=== PATIENT | male | born 1970 | race Caucasian/White ===

== ENCOUNTER 2017-05-24 10:52 | Inpatient (IN) | payer MEDICARE, MEDICAID ==
[~2017-05-24] VITALS: Ht 185.4 cm; Wt 95.7 kg
[~2017-05-24 10:52] MED LIST: BUSP10TA11 PO; FOLI1TAB16 PO; GABA-530 PO; OMEP10CA4 PO
[2017-05-24 11:50] LABS: CLARITY,URINE CLOUDY (Clear); COLOR,URINE YELLOW (Yellow); GLUCOSE, URINE NEGATIVE (Neg); KETONES,URINE TRACE mg/dl (Neg); LEUKOCYTE ESTERASE ,URINE NEGATIVE (Neg); NITRITES, URINE NEGATIVE (Neg); OCCULT BLOOD,URINE NEGATIVE (Neg); PROTEIN,URINE 30 mg/dl (Neg); UROBILINOGEN,URINE >=8.0 E.U/dL (0.2-1.0)
[2017-05-24 11:51] LABS: UA COLLECTION TYPE CLN CATCH MIDSTREAM
[2017-05-24 11:58] LABS: MUCUS STRANDS MODERATE /LPF (Neg); SQUAMOUS EPITHELIAL CELL,UR FEW /LPF (FEW)
[2017-05-24 11:59] LABS: BACTERIA,URINE FEW /HPF (Neg); TRANSITIONAL EPI CELLS,URINE FEW /HPF
[2017-05-24 12:00] LABS: RBC,URINE 0-2 /HPF (0-2); WBC,URINE 0-4 /HPF (0-4)
[2017-05-24] MEDS ORDERED: normal saline 1000ML IV soln IVB ONE (12:30)
[2017-05-24] MEDS ORDERED: ondansetron/PF 4mg/2ml inj IV ONE (12:30)
[2017-05-24] MEDS ORDERED: ondansetron/PF 4mg/2ml inj IV STA (12:46)
[2017-05-24] MEDS ORDERED: MORPHINE 2MG in 2ml NS syringe IV STA ×2 (12:46→14:48)
[2017-05-24 13:05] LABS: BASOPHILS % (AUTO) 0.6 % (0-1); EOSINOPHILS % (AUTO) 0.5 % (0-6); HEMATOCRIT 46.8 % (42.0-52.0); HEMOGLOBIN 16.2 g/dl (14.0-17.9); LYMPHOCYTES % (AUTO) 18.1 % (21-51); MEAN CORPUSCULAR HEMOGLOBIN 31.3 PG (27.0-31.0); MEAN CORPUSCULAR HGB CONC 34.5 % (33.0-36.5); MEAN CORPUSCULAR VOLUME 90.7 FL (78-98); MEAN PLATELET VOLUME 8.2 FL (7.4-10.4); MONOCYTES # (AUTO) 0.4 X10'3 (0-0.9); MONOCYTES % (AUTO) 6.6 % (2-12); NEUTROPHILS # (AUTO) 4.2 X10'3 (1.8-7.7); NEUTROPHILS % (AUTO) 74.2 % (42-75); PLATELET COUNT 234 X10'3 (140-440); RED BLOOD COUNT 5.17 X10'6 (4.70-6.10); RED CELL DISTRIBUTION WIDTH 17.6 % (11.5-14.5); WHITE BLOOD COUNT 5.7 X10'3 (4.5-11.0)
[2017-05-24 13:23] LABS: ALANINE AMINOTRANSFERASE 195 U/L (12-78); ALBUMIN 3.6 G/DL (3.4-5.0); ALBUMIN/GLOBULIN RATIO 0.7 (1.1-1.5); ALKALINE PHOSPHATASE 222 IU/L (46-116); ANION GAP 16 (8-16); ASPARTATE AMINO TRANSFERASE 415 U/L (10-37); BILIRUBIN,TOTAL 2.8 MG/DL (0.1-1.0); BLOOD UREA NITROGEN 6 MG/DL (7-18); BUN/CREATININE RATIO 6.9 (5.4-32.0); CALCIUM 9.1 MG/DL (8.5-10.1); CHLORIDE 97 MMOL/L (99-107); CREATININE 0.87 MG/DL (0.60-1.10); GLUCOSE 122 MG/DL (70-104); LIPASE 472 U/L (73-393); POTASSIUM 3.7 MMOL/L (3.5-5.1); SODIUM 138 MMOL/L (135-145); TOTAL PROTEIN 8.5 G/DL (6.4-8.2); TROPONIN I < 0.04 NG/ML (0.0-0.05); eGFR > 90 ML/MIN
[2017-05-24] MEDS ORDERED: potassium Cl 20 mEq SR tablet PO PRN (14:50)
[2017-05-24] MEDS ORDERED: magnesium 4gm in 100ml NS 100 ML IV PRN (14:50)
[2017-05-24] MEDS ORDERED: mag hydrox/Alum hydrox/simeth 30ml oral suspension PO PRN (14:50)
[2017-05-24] MEDS ORDERED: haloperidol lactate 5mg/ml inj IM PRN (14:50)
[2017-05-24] MEDS ORDERED: haloperidol 5mg tablet PO PRN (14:50)
[2017-05-24] MEDS ORDERED: acetaminophen 325mg tablet PO PRN (14:50)
[2017-05-24] MEDS ORDERED: magnesium 2GM in 50ml NS 50 ML IV PRN (14:50)
[2017-05-24] MEDS ORDERED: magnesium hydroxide 30ml (MOM) UD suspension PO PRN (14:50)
[2017-05-24] MEDS ORDERED: thiamine 100mg/ml 2ml inj. IV ONE (14:50)
[2017-05-24] MEDS ORDERED: LORazepam 2 mg/ml vial IV ONE (14:50)
[2017-05-24] MEDS ORDERED: dextrose 50%-water 50ml dispensing syringe IV PRN (14:50)
[2017-05-24] MEDS ORDERED: ondansetron/PF 4mg/2ml inj IV PRN (14:50)
[2017-05-24] MEDS ORDERED: potassium Cl 40MEQ/NS 500ml 500 ML IV PRN ×2 (14:50)
[2017-05-24] MEDS: normal saline 1000ml 1,000 ML IV SCH (15:10)
[2017-05-24 15:40] LABS: INR 1.3 INR
[2017-05-24] MEDS: LORazepam 2 mg/ml vial IV PRN ×3 (18:03→20:50)
[2017-05-24] MEDS: gabapentin 100mg capsule PO SCH (20:46)
[2017-05-24 21:26] LABS: CLARITY,URINE CLEAR (Clear); COLOR,URINE AMBER (Yellow); GLUCOSE, URINE 100 mg/dl (Neg); KETONES,URINE 40 mg/dl (Neg); LEUKOCYTE ESTERASE ,URINE NEGATIVE (Neg); NITRITES, URINE NEGATIVE (Neg); OCCULT BLOOD,URINE NEGATIVE (Neg); PH,URINE 6.5 (4.8-8.0); PROTEIN,URINE 30 mg/dl (Neg)
[2017-05-24 21:31] LABS: UA COLLECTION TYPE URINAL
[2017-05-24 21:44] LABS: BACTERIA,URINE FEW /HPF (Neg); MUCUS STRANDS MANY /LPF (Neg); RBC,URINE NONE SEEN /HPF (0-2); SQUAMOUS EPITHELIAL CELL,UR FEW /LPF (FEW); WBC,URINE 0-4 /HPF (0-4)
[2017-05-24 21:45] LABS: AMORPHOUS PHOSPHATES 1+; HYALINE CASTS 0-3 /LPF (NEGATIVE)
[2017-05-25] MEDS: normal saline 1000ml 1,000 ML IV SCH ×2 (00:20→12:38)
[2017-05-25] MEDS: LORazepam 2 mg/ml vial IV PRN ×6 (00:27→23:00)
[2017-05-25 07:24] LABS: ANION GAP 14 (8-16); BLOOD UREA NITROGEN 9 MG/DL (7-18); BUN/CREATININE RATIO 13.2 (5.4-32.0); CALCIUM 8.3 MG/DL (8.5-10.1); CHLORIDE 101 MMOL/L (99-107); CREATININE 0.68 MG/DL (0.60-1.10); GLUCOSE 78 MG/DL (70-104); LIPASE 378 U/L (73-393); POTASSIUM 4.1 MMOL/L (3.5-5.1); SODIUM 138 MMOL/L (135-145); eGFR > 90 ML/MIN
[2017-05-25 07:58] LABS: BASOPHILS # (AUTO) 0.1 X10'3 (0-0.2); BASOPHILS % (AUTO) 1.2 % (0-1); EOSINOPHILS # (AUTO) 0.1 X10'3 (0-0.9); EOSINOPHILS % (AUTO) 1.5 % (0-6); HEMATOCRIT 38.2 % (42.0-52.0); HEMOGLOBIN 13.4 g/dl (14.0-17.9); LYMPHOCYTES # (AUTO) 1.1 X10'3 (1.1-4.8); LYMPHOCYTES % (AUTO) 18.3 % (21-51); MEAN CORPUSCULAR HGB CONC 35.2 % (33.0-36.5); MEAN PLATELET VOLUME 8.2 FL (7.4-10.4); MONOCYTES # (AUTO) 0.4 X10'3 (0-0.9); MONOCYTES % (AUTO) 7.1 % (2-12); NEUTROPHILS # (AUTO) 4.4 X10'3 (1.8-7.7); NEUTROPHILS % (AUTO) 71.9 % (42-75); PLATELET COUNT 154 X10'3 (140-440); RED CELL DISTRIBUTION WIDTH 17.7 % (11.5-14.5); WHITE BLOOD COUNT 6.2 X10'3 (4.5-11.0)
[2017-05-25] MEDS: enoxaparin 40mg/0.4ml syringe SUBCUT SCH (08:00)
[2017-05-25] MEDS: K and/or MAG REPLACEMENT MC SCH (08:00)
[2017-05-25] MEDS ORDERED: magnesium 2GM in 50ml NS 50 ML IV ONE (08:10)
[2017-05-25 08:42] LABS: ALANINE AMINOTRANSFERASE 149 U/L (12-78); ALBUMIN/GLOBULIN RATIO 0.8 (1.1-1.5); ALKALINE PHOSPHATASE 170 IU/L (46-116); ASPARTATE AMINO TRANSFERASE 325 U/L (10-37); BILIRUBIN,DIRECT 2.7 MG/DL (0-0.3); BILIRUBIN,TOTAL 4.1 MG/DL (0.1-1.0); TOTAL PROTEIN 6.8 G/DL (6.4-8.2)
[2017-05-25] MEDS: gabapentin 100mg capsule PO SCH ×2 (08:44→20:48)
[2017-05-25] MEDS: folic acid 1mg tablet PO SCH (08:45)
[2017-05-25] MEDS: thiamine 100mg tablet PO SCH (08:45)
[2017-05-25 16:05] VITALS: BP 143/104
[2017-05-25] MEDS: oxyCODONE IR 5mg (immed. release) tablet PO PRN ×2 (17:33→23:00)
[2017-05-25 20:00] VITALS: BP 111/89
[2017-05-25] MEDS: magnesium Cl slow-release 64mg tablet PO PRN (20:49)
[2017-05-26] VITALS: BP 122/81
[2017-05-26] MEDS: normal saline 1000ml 1,000 ML IV SCH ×3 (01:11→12:29)
[2017-05-26] MEDS: oxyCODONE IR 5mg (immed. release) tablet PO PRN ×2 (03:21→20:54)
[2017-05-26] MEDS: LORazepam 2 mg/ml vial IV PRN ×3 (03:21→12:56)
[2017-05-26 06:23] LABS: BASOPHILS % (AUTO) 0.5 % (0-1); EOSINOPHILS # (AUTO) 0.2 X10'3 (0-0.9); EOSINOPHILS % (AUTO) 2.7 % (0-6); HEMATOCRIT 37.6 % (42.0-52.0); HEMOGLOBIN 13.3 g/dl (14.0-17.9); LYMPHOCYTES # (AUTO) 0.7 X10'3 (1.1-4.8); LYMPHOCYTES % (AUTO) 9.5 % (21-51); MEAN CORPUSCULAR HEMOGLOBIN 32.2 PG (27.0-31.0); MEAN CORPUSCULAR HGB CONC 35.4 % (33.0-36.5); MEAN PLATELET VOLUME 9.1 FL (7.4-10.4); MONOCYTES # (AUTO) 0.3 X10'3 (0-0.9); NEUTROPHILS # (AUTO) 6.1 X10'3 (1.8-7.7); NEUTROPHILS % (AUTO) 83.3 % (42-75); PLATELET COUNT 127 X10'3 (140-440); RED BLOOD COUNT 4.13 X10'6 (4.70-6.10); RED CELL DISTRIBUTION WIDTH 17.3 % (11.5-14.5); WHITE BLOOD COUNT 7.3 X10'3 (4.5-11.0)
[2017-05-26 06:36] LABS: ALBUMIN 2.8 G/DL (3.4-5.0); ANION GAP 10 (8-16); BLOOD UREA NITROGEN 5 MG/DL (7-18); BUN/CREATININE RATIO 6.8 (5.4-32.0); CALCIUM 8.2 MG/DL (8.5-10.1); CHLORIDE 99 MMOL/L (99-107); CREATININE 0.73 MG/DL (0.60-1.10); GLUCOSE 88 MG/DL (70-104); LIPASE 207 U/L (73-393); MAGNESIUM 1.3 MG/DL (1.5-2.4); POTASSIUM 3.3 MMOL/L (3.5-5.1); SODIUM 136 MMOL/L (135-145); TOTAL CARBON DIOXIDE 26.9 MMOL/L (24-32); eGFR > 90 ML/MIN
[2017-05-26 07:45] VITALS: BP 102/68
[2017-05-26] MEDS: K and/or MAG REPLACEMENT MC SCH (08:00)
[2017-05-26] MEDS: thiamine 100mg tablet PO SCH (08:29)
[2017-05-26] MEDS: folic acid 1mg tablet PO SCH (08:29)
[2017-05-26] MEDS: gabapentin 100mg capsule PO SCH ×2 (08:29→20:54)
[2017-05-26] MEDS: potassium Cl 20 mEq SR tablet PO PRN (08:30)
[2017-05-26] MEDS: magnesium Cl slow-release 64mg tablet PO PRN (08:31)
[2017-05-26] MEDS: enoxaparin 40mg/0.4ml syringe SUBCUT SCH (08:34)
[2017-05-26 11:00] VITALS: BP 103/69
[2017-05-26] MEDS ORDERED: LORazepam 2 mg/ml vial IV PRN (14:50)
[2017-05-26 18:00] VITALS: BP 121/84
[2017-05-26] MEDS: metoprolol tartrate 12.5mg (1/2 tablet) PO SCH (20:54)
[2017-05-27] VITALS: BP 122/81
[2017-05-27] MEDS: magnesium Cl slow-release 64mg tablet PO PRN (01:02)
[2017-05-27] MEDS: potassium Cl 20 mEq SR tablet PO PRN ×2 (01:02→05:09)
[2017-05-27] MEDS: normal saline 1000ml 1,000 ML IV SCH (03:31)
[2017-05-27] MEDS: LORazepam 1 MG tablet PO PRN ×2 (03:32→04:47)
[2017-05-27] MEDS: oxyCODONE IR 5mg (immed. release) tablet PO PRN (05:09)
[2017-05-27 05:29] LABS: BASOPHILS % (AUTO) 0.5 % (0-1); EOSINOPHILS # (AUTO) 0.2 X10'3 (0-0.9); EOSINOPHILS % (AUTO) 3.2 % (0-6); HEMATOCRIT 38.4 % (42.0-52.0); HEMOGLOBIN 13.6 g/dl (14.0-17.9); LYMPHOCYTES # (AUTO) 1.3 X10'3 (1.1-4.8); LYMPHOCYTES % (AUTO) 20.1 % (21-51); MEAN CORPUSCULAR HEMOGLOBIN 32.4 PG (27.0-31.0); MEAN CORPUSCULAR HGB CONC 35.3 % (33.0-36.5); MEAN CORPUSCULAR VOLUME 91.8 FL (78-98); MEAN PLATELET VOLUME 9.1 FL (7.4-10.4); MONOCYTES # (AUTO) 0.5 X10'3 (0-0.9); MONOCYTES % (AUTO) 8.1 % (2-12); NEUTROPHILS # (AUTO) 4.5 X10'3 (1.8-7.7); NEUTROPHILS % (AUTO) 68.1 % (42-75); PLATELET COUNT 124 X10'3 (140-440); RED BLOOD COUNT 4.19 X10'6 (4.70-6.10); RED CELL DISTRIBUTION WIDTH 17.3 % (11.5-14.5); WHITE BLOOD COUNT 6.6 X10'3 (4.5-11.0)
[2017-05-27 05:45] LABS: ALBUMIN 2.7 G/DL (3.4-5.0); ANION GAP 11 (8-16); BLOOD UREA NITROGEN 7 MG/DL (7-18); BUN/CREATININE RATIO 9.3 (5.4-32.0); CALCIUM 8.2 MG/DL (8.5-10.1); CHLORIDE 99 MMOL/L (99-107); CREATININE 0.75 MG/DL (0.60-1.10); GLUCOSE 103 MG/DL (70-104); LIPASE 238 U/L (73-393); MAGNESIUM 1.2 MG/DL (1.5-2.4); POTASSIUM 3.5 MMOL/L (3.5-5.1); SODIUM 133 MMOL/L (135-145); TOTAL CARBON DIOXIDE 23.2 MMOL/L (24-32); eGFR > 90 ML/MIN
[2017-05-27] MEDS: thiamine 100mg tablet PO SCH (08:03)
[2017-05-27] MEDS: gabapentin 100mg capsule PO SCH (08:03)
[2017-05-27] MEDS: metoprolol tartrate 12.5mg (1/2 tablet) PO SCH (08:03)
[2017-05-27] MEDS: folic acid 1mg tablet PO SCH (08:03)
[2017-05-27] MEDS: enoxaparin 40mg/0.4ml syringe SUBCUT SCH (08:04)
[2017-05-27] MEDS ORDERED: METO25TA6 PO (08:56)
[2017-05-27] MEDS ORDERED: LORA0.5T PO (08:56)
[2017-05-27] MEDS ORDERED: THI100T PO (08:56)
[2017-05-27] MEDS ORDERED: MAGN500C16 PO (12:01)
[2017-05-27] MEDS ORDERED: CALC500P30 PO (12:03)
[2017-05-28] MEDS ORDERED: LORazepam 1 MG tablet PO PRN (14:50)
[2017-05-28] MEDS ORDERED: LORazepam 2 mg/ml vial IV PRN (14:50)
== END 2017-05-27 12:30 | disposition home or self-care (01) | DRG 432 ==
LOC: ER 10:53 → ED HOLD 14:49 → SUR 3N 05-25 15:51
PROVIDERS: ADMIT Internal Medicine; ATTEND Internal Medicine
DX: K70.10 Alcoholic hepatitis without ascites (principal); K85.20 Alcohol induced acute pancreatitis without necrosis or infection; E83.42 Hypomagnesemia; K51.90 Ulcerative colitis, unspecified, without complications; E87.1 Hypo-osmolality and hyponatremia; K74.60 Unspecified cirrhosis of liver; G62.9 Polyneuropathy, unspecified; K86.0 Alcohol-induced chronic pancreatitis; F10.230 Alcohol dependence with withdrawal, uncomplicated; F32.9 Major depressive disorder, single episode, unspecified; F41.9 Anxiety disorder, unspecified; K76.0 Fatty (change of) liver, not elsewhere classified; Z90.49 Acquired absence of other specified parts of digestive tract; Z87.11 Personal history of peptic ulcer disease
CPT/HCPCS: 36415; 74176; 80048; 80053; 80076; 81001; 83690; 83735; 84484; 85025; 85610; 93005; 96361; 96374; 96375; 99285; J1650; J2060; J2274; J2405; J3411; J3475; J7030

== ENCOUNTER 2018-10-14 06:24 | Emergency (ER) | payer MEDICAID, MEDICARE ==
[~2018-10-14] VITALS: Ht 180.3 cm; Wt 104.0 kg
[~2018-10-14 06:24] MED LIST changes: +CALC500P30 PO; +MAGN500C16 PO; +METO25TA6 PO; -OMEP10CA4 PO; +OMEP10CA5 PO; +THI100T PO
[2018-10-14] MEDS ORDERED: normal saline 1000ml 1,000 ML IV ONE ×2 (06:45→08:10)
[2018-10-14] MEDS ORDERED: LORazepam 2 mg/ml vial IV ONE ×2 (06:45→08:10)
[2018-10-14] MEDS ORDERED: aspirin 81mg tab.chew PO ONE (06:45)
[2018-10-14] MEDS ORDERED: metoclopramide 5 mg/ml inj IV ONE (06:50)
[2018-10-14 07:43] LABS: BASOPHILS % (AUTO) 0.5 % (0-1); EOSINOPHILS # (AUTO) 0.1 X10'3 (0-0.9); EOSINOPHILS % (AUTO) 1.3 % (0-6); HEMATOCRIT 46.7 % (42.0-52.0); HEMOGLOBIN 15.8 g/dl (14.0-17.9); LYMPHOCYTES # (AUTO) 1.7 X10'3 (1.1-4.8); MEAN CORPUSCULAR HEMOGLOBIN 28.8 PG (27.0-31.0); MEAN CORPUSCULAR HGB CONC 33.8 g/dL (33.0-36.5); MEAN CORPUSCULAR VOLUME 85.1 FL (78-98); MONOCYTES # (AUTO) 0.5 X10'3 (0-0.9); MONOCYTES % (AUTO) 6.1 % (2-12); NEUTROPHILS # (AUTO) 5.3 X10'3 (1.8-7.7); NEUTROPHILS % (AUTO) 70.1 % (42-75); PLATELET COUNT 267 X10'3 (140-440); RED BLOOD COUNT 5.48 X10'6 (4.70-6.10); RED CELL DISTRIBUTION WIDTH 14.3 % (11.5-14.5); WHITE BLOOD COUNT 7.5 X10'3 (4.5-11.0)
[2018-10-14 07:58] LABS: CLARITY,URINE CLEAR (Clear); COLOR,URINE YELLOW (Yellow); GLUCOSE, URINE NEGATIVE (Neg); KETONES,URINE 15 mg/dl (Neg); LEUKOCYTE ESTERASE ,URINE TRACE (Neg); NITRITES, URINE NEGATIVE (Neg); OCCULT BLOOD,URINE NEGATIVE (Neg); PROTEIN,URINE 30 mg/dl (Neg)
[2018-10-14 07:59] LABS: UA COLLECTION TYPE URINAL
[2018-10-14 08:15] LABS: BACTERIA,URINE FEW /HPF (Neg); MUCUS STRANDS MANY /LPF (Neg); RBC,URINE NONE SEEN /HPF (0-2); SQUAMOUS EPITHELIAL CELL,UR NONE SEEN /LPF (FEW)
[2018-10-14 08:22] LABS: ALANINE AMINOTRANSFERASE 172 U/L (12-78); ALBUMIN 3.9 G/DL (3.4-5.0); ALBUMIN/GLOBULIN RATIO 0.8 (1.1-1.5); ALKALINE PHOSPHATASE 175 IU/L (46-116); ANION GAP 18 (8-16); ASPARTATE AMINO TRANSFERASE 178 U/L (10-37); BILIRUBIN,TOTAL 1.1 MG/DL (0.1-1.0); BLOOD UREA NITROGEN 5 MG/DL (7-18); BUN/CREATININE RATIO 5.6 (5.4-32.0); CHLORIDE 97 MMOL/L (99-107); GLUCOSE 149 MG/DL (70-104); POTASSIUM 3.1 MMOL/L (3.5-5.1); SODIUM 137 MMOL/L (135-145); TOTAL CARBON DIOXIDE 22.1 MMOL/L (24-32); TOTAL PROTEIN 9.1 G/DL (6.4-8.2); eGFR 90 ML/MIN
[2018-10-14 08:27] LABS: URINE AMPHETAMINE SCREEN NEGATIVE (Neg); URINE BARBITUATE SCREEN NEGATIVE (Neg); URINE BENZODIAZEPINES SCREEN NEGATIVE (Neg); URINE CANNABINOID SCREEN POSITIVE (Neg); URINE COCAINE SCREEN NEGATIVE (Neg); URINE METHADONE SCREEN NEGATIVE (Neg); URINE OPIATE SCREEN NEGATIVE (Neg); URINE PHENCYCLIDINE SCREEN NEGATIVE (Neg)
[2018-10-14] MEDS ORDERED: potassium Cl 20 mEq SR tablet PO STA (08:31)
[2018-10-14 08:34] LABS: ETHANOL 0.123 GM/DL (0.0-0.010); MAGNESIUM 1.1 MG/DL (1.5-2.4)
[2018-10-14] MEDS ORDERED: CefTRIAXone/D5W-Rocephin 1gm 50 ML IV ONE (08:35)
[2018-10-14 08:45] VITALS: BP 160/103
== END 2018-10-14 09:22 | disposition home or self-care (01) ==
LOC: ER 06:25
DX: F10.10 Alcohol abuse, uncomplicated (principal); F41.9 Anxiety disorder, unspecified; R07.9 Chest pain, unspecified; M79.602 Pain in left arm; R11.0 Nausea; R20.0 Anesthesia of skin; R00.0 Tachycardia, unspecified; E11.9 Type 2 diabetes mellitus without complications; F32.9 Major depressive disorder, single episode, unspecified; I50.9 Heart failure, unspecified; Z79.899 Other long term (current) drug therapy; Z91.14 Patient's other noncompliance with medication regimen; Z87.19 Personal history of other diseases of the digestive system; Z87.11 Personal history of peptic ulcer disease; Z90.49 Acquired absence of other specified parts of digestive tract; Z60.2 Problems related to living alone; Y90.9 Presence of alcohol in blood, level not specified
CPT/HCPCS: 36415; 71045; 80053; 80305; 80320; 81001; 83735; 83880; 84484; 85025; 85610; 87088; 93005; 96374; 96375; 96376; 99284; J0696; J2060; J2765; J7030

== ENCOUNTER 2018-11-27 09:04 | Emergency (ER) | payer MEDICARE ==
[~2018-11-27] VITALS: Ht 182.9 cm; Wt 104.5 kg
--- NOTE | 2018-11-27 09:26 | NUR ---
PT TEARFUL, STATES HE IS DOESNT FIGHT WITH ANYONE. JUST HAVING FAMILY ISSUES.
--- NOTE | 2018-11-27 09:27 | NUR ---
PT SWEATY, COLD THEN HOT.
[2018-11-27] MEDS ORDERED: LORazepam 2 mg/ml vial IM ONE (09:45)
[2018-11-27 10:02] LABS: BASOPHILS # (AUTO) 0.1 X10'3 (0-0.2); BASOPHILS % (AUTO) 0.8 % (0-1); EOSINOPHILS # (AUTO) 0.1 X10'3 (0-0.9); EOSINOPHILS % (AUTO) 0.8 % (0-6); HEMATOCRIT 46.4 % (42.0-52.0); HEMOGLOBIN 15.6 g/dl (14.0-17.9); LYMPHOCYTES # (AUTO) 2.6 X10'3 (1.1-4.8); LYMPHOCYTES % (AUTO) 17.6 % (21-51); MEAN CORPUSCULAR HEMOGLOBIN 27.9 PG (27.0-31.0); MEAN CORPUSCULAR HGB CONC 33.5 g/dL (33.0-36.5); MEAN CORPUSCULAR VOLUME 83.4 FL (78-98); MEAN PLATELET VOLUME 7.6 FL (7.4-10.4); MONOCYTES # (AUTO) 0.8 X10'3 (0-0.9); MONOCYTES % (AUTO) 5.6 % (2-12); NEUTROPHILS # (AUTO) 11.1 X10'3 (1.8-7.7); NEUTROPHILS % (AUTO) 75.2 % (42-75); PLATELET COUNT 361 X10'3 (140-440); RED BLOOD COUNT 5.57 X10'6 (4.70-6.10); RED CELL DISTRIBUTION WIDTH 15.1 % (11.5-14.5); WHITE BLOOD COUNT 14.8 X10'3 (4.5-11.0)
[2018-11-27 10:19] LABS: ALANINE AMINOTRANSFERASE 130 U/L (12-78); ALBUMIN 4.1 G/DL (3.4-5.0); ALBUMIN/GLOBULIN RATIO 0.8 (1.1-1.5); ALKALINE PHOSPHATASE 164 IU/L (46-116); ANION GAP 17 (8-16); ASPARTATE AMINO TRANSFERASE 115 U/L (10-37); BILIRUBIN,TOTAL 0.8 MG/DL (0.1-1.0); BLOOD UREA NITROGEN 11 MG/DL (7-18); BUN/CREATININE RATIO 13.1 (5.4-32.0); CALCIUM 8.7 MG/DL (8.5-10.1); CHLORIDE 103 MMOL/L (99-107); CREATININE 0.84 MG/DL (0.60-1.10); ETHANOL 0.222 GM/DL (0.0-0.010); GLUCOSE 149 MG/DL (70-104); LIPASE < 50 U/L (73-393); POTASSIUM 3.7 MMOL/L (3.5-5.1); SODIUM 142 MMOL/L (135-145); TOTAL CARBON DIOXIDE 22.2 MMOL/L (24-32); TOTAL PROTEIN 9.2 G/DL (6.4-8.2); eGFR > 90 ML/MIN
[2018-11-27] MEDS ORDERED: mag hydrox/Alum hydrox/simeth 30ml oral suspension PO ONE (10:25)
[2018-11-27] MEDS ORDERED: LIDOcaine Viscous 15ml cup MM PRN (10:25)
[2018-11-27 10:26] LABS: PARTIAL THROMBOPLASTIN TIME 25 SECONDS (22-32)
--- NOTE | 2018-11-27 11:16 | NUR ---
SOCK EXAMINER STAFF AT BEDSIDE SPEAKING TO THE PT .NO DISTRESS NOTED.
[2018-11-27] MEDS ORDERED: normal saline 1000ML IV soln IV ONE (11:30)
--- NOTE | 2018-11-27 11:30 | NUR ---
notified paulina doran abt pt hr 155 at rest pt is anxious but his hr is in btw 140 -155,as per paulina doran he will order iv fluids .no other concern casting director at bedside ,spoke to them as pt needed iv as per casting director they will be done soon.
--- NOTE | 2018-11-27 12:26 | NUR ---
Note pio in EDM - 11/27/18 at 1229 by [email or web address] PT DOING LOT BETTER THAN BEFORE MORE RELAXED RESTING IN BED QUIETLY ,HR CAME DOWN FROM 155 TO 124 WITH IV FLUID .PT GETTING 2ND BAG OF N.S IV INFUSING PER MD ORDERS,NO DISTRESS NOTED WILL CONTTO MONITOR.
--- NOTE | 2018-11-27 12:29 | NUR ---
PT DOING LOT BETTER THAN BEFORE MORE RELAXED RESTING IN BED QUIETLY ,HR CAME DOWN FROM 155 TO 124 WITH IV FLUID .PT GETTING 2ND BAG OF N.S IV INFUSING PER MD ORDERS,NO DISTRESS NOTED WILL CONTTO MONITOR.
[2018-11-27] MEDS ORDERED: LORazepam 2 mg/ml vial IV ONE (12:50)
[2018-11-27] MEDS ORDERED: metoprolol tartrate 1mg/ml inj IV ONE (14:20)
[2018-11-27 14:43] LABS: CLARITY,URINE CLEAR (Clear); COLOR,URINE YELLOW (Yellow); GLUCOSE, URINE NEGATIVE (Neg); KETONES,URINE 40 mg/dl (Neg); LEUKOCYTE ESTERASE ,URINE NEGATIVE (Neg); NITRITES, URINE NEGATIVE (Neg); OCCULT BLOOD,URINE TRACE-INTACT (Neg); PH,URINE 5.5 (4.8-8.0); PROTEIN,URINE 100 mg/dl (Neg)
[2018-11-27 14:45] LABS: UA COLLECTION TYPE NON-SPECIFIED
[2018-11-27 14:47] VITALS: BP 136/102
[2018-11-27 14:50] LABS: URINE AMPHETAMINE SCREEN NEGATIVE (Neg); URINE BARBITUATE SCREEN NEGATIVE (Neg); URINE BENZODIAZEPINES SCREEN NEGATIVE (Neg); URINE CANNABINOID SCREEN POSITIVE (Neg); URINE COCAINE SCREEN NEGATIVE (Neg); URINE METHADONE SCREEN NEGATIVE (Neg); URINE OPIATE SCREEN NEGATIVE (Neg); URINE PHENCYCLIDINE SCREEN NEGATIVE (Neg)
[2018-11-27 14:52] LABS: MUCUS STRANDS MODERATE /LPF (Neg)
[2018-11-27 14:54] LABS: BACTERIA,URINE FEW /HPF (Neg); RBC,URINE 0-2 /HPF (0-2); SQUAMOUS EPITHELIAL CELL,UR FEW /LPF (FEW)
--- NOTE | 2018-11-27 15:06 | NUR ---
PT'S HEART RATE HAS COME DOWN TO 103 AND URINE IS CLEAR. PT IS CLEARED FOR DC BY PROVIDER. PT GIVEN 3 BUS PASSES IF HE CHOOSES TO USE THEM TO GET TO [place]. ALSO PT IS TRYING TO CALL A FRIEND FOR TRANSPORT.
== END 2018-11-27 15:10 | disposition home or self-care (01) ==
LOC: ER 09:05
DX: F10.20 Alcohol dependence, uncomplicated (principal); F41.9 Anxiety disorder, unspecified; F32.9 Major depressive disorder, single episode, unspecified; R00.0 Tachycardia, unspecified; I11.0 Hypertensive heart disease with heart failure; I50.9 Heart failure, unspecified; R11.2 Nausea with vomiting, unspecified; E11.9 Type 2 diabetes mellitus without complications; F12.90 Cannabis use, unspecified, uncomplicated; Z87.11 Personal history of peptic ulcer disease; Z90.49 Acquired absence of other specified parts of digestive tract
CPT/HCPCS: 36415; 71045; 80053; 80305; 80320; 81001; 83690; 84484; 85025; 85610; 85730; 87088; 93005; 96361; 96372; 96374; 96375; 99284; J2060; J7030; J3490

== ENCOUNTER 2020-10-14 19:35 | Emergency (ER) | payer MEDICARE, MEDICAID ==
[~2020-10-14] VITALS: Ht 182.9 cm; Wt 104.3 kg
[~2020-10-14 19:35] MED LIST changes: +LOP25T PO; -METO25TA6 PO
[2020-10-14 19:36] VITALS: BP 136/92
[2020-10-14] MEDS ORDERED: normal saline 1000ml 1,000 ML IV ONE (21:25)
[2020-10-14] MEDS ORDERED: LORazepam 1 MG tablet PO ONE (21:25)
[2020-10-14] MEDS ORDERED: iohexol 300mg/ml 100ml inj. ONE (21:28)
[2020-10-14 22:11] LABS: ALBUMIN 3.9 G/DL (3.4-5.0); ANION GAP 13 (8-16); BLOOD UREA NITROGEN 8 MG/DL (7-18); BUN/CREATININE RATIO 9.8 (5.4-32.0); CALCIUM 8.3 MG/DL (8.5-10.1); CHLORIDE 107 MMOL/L (99-107); CREATININE 0.82 MG/DL (0.60-1.10); GLUCOSE 149 MG/DL (70-104); LIPASE < 50 U/L (73-393); SODIUM 146 MMOL/L (135-145); TOTAL CARBON DIOXIDE 25.6 MMOL/L (24-32); eGFR > 90 ML/MIN
[2020-10-14] MEDS ORDERED: MESSAGE TO NURSING PO SCH (22:30)
[2020-10-14 22:38] LABS: EOSINOPHILS # (AUTO) 0.2 X10'3 (0-0.9); MEAN CORPUSCULAR HEMOGLOBIN 21.3 PG (27.0-31.0); MONOCYTES # (AUTO) 0.7 X10'3 (0-0.9)
[2020-10-14 22:39] LABS: BASOPHILS # (AUTO) 0.1 X10'3 (0-0.2); BASOPHILS % (AUTO) 2.4 % (0-1); EOSINOPHILS % (AUTO) 2.7 % (0-6); HEMATOCRIT 35.1 % (42.0-52.0); HEMOGLOBIN 11.2 g/dl (14.0-17.9); LYMPHOCYTES # (AUTO) 1.8 X10'3 (1.1-4.8); MEAN CORPUSCULAR HGB CONC 31.8 g/dL (33.0-36.5); MEAN CORPUSCULAR VOLUME 66.8 FL (78-98); MEAN PLATELET VOLUME 7.2 FL (7.4-10.4); MONOCYTES % (AUTO) 11.9 % (2-12); NEUTROPHILS # (AUTO) 3.1 X10'3 (1.8-7.7); PLATELET COUNT 558 X10'3 (140-440); RED BLOOD COUNT 5.26 X10'6 (4.70-6.10); RED CELL DISTRIBUTION WIDTH 24.1 % (11.5-14.5); WHITE BLOOD COUNT 5.9 X10'3 (4.5-11.0)
[2020-10-14 23:49] LABS: ANISOCYTOSIS 3+; PLATELET ESTIMATE INCREASED
[2020-10-14 23:50] LABS: ELLIPTOCYTES 1+; MICROCYTOSIS 2+
== END 2020-10-15 00:07 | disposition home or self-care (01) ==
LOC: ER 19:35
DX: R10.13 Epigastric pain (principal); R11.0 Nausea; I50.9 Heart failure, unspecified; F41.9 Anxiety disorder, unspecified; F32.9 Major depressive disorder, single episode, unspecified; F12.90 Cannabis use, unspecified, uncomplicated; Z87.11 Personal history of peptic ulcer disease; Z90.89 Acquired absence of other organs; Z72.89 Other problems related to lifestyle; Z60.2 Problems related to living alone; Z79.899 Other long term (current) drug therapy
CPT/HCPCS: 36415; 74177; 80048; 83690; 85008; 85025; 96360; 96361; 99285; J7030; Q9967

== ENCOUNTER 2020-10-21 03:15 | Emergency (ER) | payer MEDICARE, MEDICAID ==
[~2020-10-21] VITALS: Ht 182.9 cm; Wt 109.0 kg
[2020-10-21] MEDS ORDERED: normal saline 1000ml 1,000 ML IV ONE (03:45)
[2020-10-21 04:10] LABS: BASOPHILS # (AUTO) 0.2 X10'3 (0-0.2); BASOPHILS % (AUTO) 3.2 % (0-1); EOSINOPHILS # (AUTO) 0.1 X10'3 (0-0.9)
[2020-10-21 04:11] LABS: EOSINOPHILS % (AUTO) 2.2 % (0-6); HEMATOCRIT 36.2 % (42.0-52.0); HEMOGLOBIN 11.3 g/dl (14.0-17.9); LYMPHOCYTES # (AUTO) 1.8 X10'3 (1.1-4.8); LYMPHOCYTES % (AUTO) 30.8 % (21-51); MEAN CORPUSCULAR HGB CONC 31.3 g/dL (33.0-36.5); MEAN CORPUSCULAR VOLUME 67.1 FL (78-98); MEAN PLATELET VOLUME 8.2 FL (7.4-10.4); MONOCYTES # (AUTO) 0.3 X10'3 (0-0.9); MONOCYTES % (AUTO) 5.3 % (2-12); NEUTROPHILS # (AUTO) 3.4 X10'3 (1.8-7.7); NEUTROPHILS % (AUTO) 58.5 % (42-75); PLATELET COUNT 323 X10'3 (140-440); RED BLOOD COUNT 5.39 X10'6 (4.70-6.10); RED CELL DISTRIBUTION WIDTH 25.2 % (11.5-14.5); WHITE BLOOD COUNT 5.8 X10'3 (4.5-11.0)
[2020-10-21 04:19] LABS: ALBUMIN 3.9 G/DL (3.4-5.0); ANION GAP 18 (8-16); BLOOD UREA NITROGEN 7 MG/DL (7-18); BUN/CREATININE RATIO 7.1 (5.4-32.0); CALCIUM 8.2 MG/DL (8.5-10.1); CHLORIDE 102 MMOL/L (99-107); CREATININE 0.99 MG/DL (0.60-1.10); GLUCOSE 222 MG/DL (70-104); POTASSIUM 3.6 MMOL/L (3.5-5.1); SODIUM 142 MMOL/L (135-145); TOTAL CARBON DIOXIDE 22.1 MMOL/L (24-32); eGFR 80 ML/MIN
[2020-10-21 04:44] LABS: ANISOCYTOSIS 3+; MICROCYTOSIS 2+; PLATELET ESTIMATE NORMAL
--- NOTE | 2020-10-21 04:50 | NUR ---
Pt crawling out of bed repeatedly, directable but a fall risk, tech at bedside to assist.
--- NOTE | 2020-10-21 05:14 | NUR ---
unable to reconcile meds, pt does not know what he is supposed to be taking and is non-compliant with meds.
[2020-10-21 05:16] VITALS: BP 143/106
[2020-10-21] MEDS ORDERED: LORazepam 2 mg/ml vial IV ONE (05:20)
--- NOTE | 2020-10-21 05:52 | NUR ---
MD AT BEDSIDE, PT REPORTS ATIVAN HAS IMPROVED HIS SHAKING. RN DISCUSSED ETOH LEVEL, MD REPORTS NOT NEEDED AT THIS TIME.
== END 2020-10-21 06:11 | disposition home or self-care (01) ==
LOC: ER 03:16
DX: F10.239 Alcohol dependence with withdrawal, unspecified (principal); Z20.822 Contact with and (suspected) exposure to COVID-19; F41.9 Anxiety disorder, unspecified; E87.6 Hypokalemia; I11.0 Hypertensive heart disease with heart failure; I50.9 Heart failure, unspecified; E11.9 Type 2 diabetes mellitus without complications; F32.9 Major depressive disorder, single episode, unspecified; F12.90 Cannabis use, unspecified, uncomplicated; Z90.89 Acquired absence of other organs; Z87.11 Personal history of peptic ulcer disease; Z72.89 Other problems related to lifestyle; Z60.2 Problems related to living alone; Z79.899 Other long term (current) drug therapy
CPT/HCPCS: 36415; 71045; 80048; 85008; 85025; 87635; 96361; 96374; 99284; C9803; J2060; J7030

== ENCOUNTER 2020-12-17 18:11 | Inpatient (IN) | payer MEDICARE, MEDICAID ==
[~2020-12-17] VITALS: Ht 182.9 cm; Wt 90.9 kg
--- NOTE | 2020-12-17 20:12 | NUR ---
PT REPORTS HE CALLED THE POLICE BECAUSE HE DIDNT THINK HE COULD STOP DRINKING AND DIDNT WANT TO . WHEN ASKED IF HE IS SUICIDAL, PT STATES "I DONT KNOW." PT IS C/O "LIVER PAIN." PT DENIES ANY MH HX, BUT TAKES BUSPAR AND REPORTS HAVING "DEPRESSION". PT REPORTS HE IS DIABETIC AND TAKES METFORMIN TWICE A DAY BUT DOESNT KNOW HOW MUCH. PT IS CRYING. PT STATES HE HAS BEEN HERE ABOUT 8 YEARS AND PLANS TO MOVE BACK TO [place] TO TAKE CARE OF HIS MOTHER.
[2020-12-17] MEDS ORDERED: LORazepam 2 mg/ml vial IM ONE (20:25)
[2020-12-17 20:31] LABS: URINE AMPHETAMINE SCREEN NEGATIVE (Neg); URINE BARBITUATE SCREEN NEGATIVE (Neg); URINE BENZODIAZEPINES SCREEN NEGATIVE (Neg); URINE CANNABINOID SCREEN POSITIVE (Neg); URINE COCAINE SCREEN NEGATIVE (Neg); URINE METHADONE SCREEN NEGATIVE (Neg); URINE OPIATE SCREEN NEGATIVE (Neg); URINE PHENCYCLIDINE SCREEN NEGATIVE (Neg)
[2020-12-17 20:35] LABS: CLARITY,URINE SLIGHTLY CLOUDY (Clear); COLOR,URINE YELLOW (Yellow); NITRITES, URINE NEGATIVE (Neg); OCCULT BLOOD,URINE NEGATIVE (Neg); PROTEIN,URINE NEGATIVE (Neg); UA COLLECTION TYPE CLN CATCH MIDSTREAM
[2020-12-17] MEDS ORDERED: mag hydrox/Alum hydrox/simeth 30ml oral suspension PO ONE (20:35)
[2020-12-17] MEDS ORDERED: ondansetron 4mg rapidly disintigrating tab PO ONE (20:35)
[2020-12-17 20:36] LABS: LEUKOCYTE ESTERASE ,URINE NEGATIVE (Neg); UROBILINOGEN,URINE 0.2 E.U/dL (0.2-1.0)
[2020-12-17 20:38] LABS: GLUCOSE, URINE >=1000 mg/dl (Neg)
[2020-12-17 20:39] LABS: KETONES,URINE 15 mg/dl (Neg)
[2020-12-17 20:47] LABS: BACTERIA,URINE FEW /HPF (Neg); RBC,URINE 0-2 /HPF (0-2); SQUAMOUS EPITHELIAL CELL,UR FEW /LPF (FEW); WBC,URINE 0-4 /HPF (0-4)
[2020-12-17 20:48] LABS: CALCIUM PHOSPHATE CRYSTALS,UR FEW /HPF (NEGATIVE)
[2020-12-17 21:03] LABS: HEMATOCRIT 38.7 % (42.0-52.0); HEMOGLOBIN 12.1 g/dl (14.0-17.9); MEAN CORPUSCULAR HEMOGLOBIN 22.4 PG (27.0-31.0); MEAN CORPUSCULAR HGB CONC 31.3 g/dL (33.0-36.5); MEAN CORPUSCULAR VOLUME 71.7 FL (78-98); MEAN PLATELET VOLUME 8.3 FL (7.4-10.4); PLATELET COUNT 443 X10'3 (140-440); RED BLOOD COUNT 5.39 X10'6 (4.70-6.10); RED CELL DISTRIBUTION WIDTH 25.8 % (11.5-14.5); WHITE BLOOD COUNT 6.3 X10'3 (4.5-11.0)
--- NOTE | 2020-12-17 21:07 | NUR ---
Pt reports feeling better anxiety is currently 5/10. Pt was given Ativan 2mg IM prn, zofran and maalox. Pt is laying in bed resting quietly, encouraging fluids, pt has had 2 pitchers of water.
[2020-12-17 21:14] LABS: ALANINE AMINOTRANSFERASE 147 U/L (12-78); ALBUMIN 3.9 G/DL (3.4-5.0); ALBUMIN/GLOBULIN RATIO 0.8 (1.1-1.5); ALKALINE PHOSPHATASE 127 IU/L (46-116); ANION GAP 23 (8-16); ASPARTATE AMINO TRANSFERASE 83 U/L (10-37); BILIRUBIN,TOTAL 0.4 MG/DL (0.1-1.0); BLOOD UREA NITROGEN 5 MG/DL (7-18); BUN/CREATININE RATIO 4.5 (5.4-32.0); CALCIUM 9.2 MG/DL (8.5-10.1); CHLORIDE 96 MMOL/L (99-107); ETHANOL 0.272 GM/DL (0.0-0.010); GLUCOSE 443 MG/DL (70-104); LIPASE 51 U/L (73-393); SODIUM 138 MMOL/L (135-145); TOTAL CARBON DIOXIDE 19.2 MMOL/L (24-32); eGFR 71 ML/MIN
[2020-12-17] MEDS ORDERED: normal saline 1000ml 1,000 ML IV ONE ×4 (21:15→23:15)
[2020-12-17] MEDS ORDERED: LORazepam 2 mg/ml vial IM PRN (21:20)
[2020-12-17 21:27] LABS: ANISOCYTOSIS 3+; ELLIPTOCYTES 1+; LARGE PLATELETS FEW; MICROCYTOSIS 1+; PLATELET ESTIMATE INCREASED; TOTAL CELLS COUNTED 100
--- NOTE | 2020-12-17 21:43 | NUR ---
Pt continued to be anxious prn Ativan given. Pt went to CT is smiling upon return reports feeling better, laying in bed appears to be resting comfortably.
--- NOTE | 2020-12-17 22:22 | NUR ---
pts glucose 443 provider is aware
[2020-12-17] MEDS ORDERED: thiamine 100mg/ml 2ml inj. IV ONE (23:10)
[2020-12-17] MEDS ORDERED: folic acid 1mg/0.2ml inj IV ONE (23:10)
--- NOTE | 2020-12-17 23:10 | NUR ---
PT ROOMED IN BED 9.
[2020-12-17] MEDS ORDERED: insulin regular, human 10 units/0.1 ml syringe IV ONE (23:15)
--- NOTE | 2020-12-17 23:22 | NUR ---
5 UNSUCCESSFUL ATTEMPTS HAVE BEEN MADE BY 2 RNS TO START AN IV.
--- NOTE | 2020-12-17 23:31 | NUR ---
IV PLACED BY GRACE KIRK, ON LEFT LOWER EXTREMITY AFTER SEVERAL ATTEMPTS WERE FAILED IN BOTH ARMS
--- NOTE | 2020-12-18 00:30 | NUR ---
DISCUSSED MEDICATIONS WITH NOLAN JONES. NO NEW ORDERS FOR INSULIN DRIP OR FOR STARTING DKA PROTOCOLS. PT HAS HISTORY OF DM TYPE 2. HE IS NOT ON INSULIN AT HOME. WILL CONTINUE TO MONITOR BG AFTER 3L OF FLUIDS AND 5 UNITS OF HUMULIN R.
[2020-12-18] MEDS ORDERED: acetaminophen 325mg tablet PO PRN (00:35)
[2020-12-18] MEDS ORDERED: magnesium hydroxide 30ml (MOM) UD suspension PO PRN (00:35)
[2020-12-18] MEDS ORDERED: mag hydrox/Alum hydrox/simeth 30ml oral suspension PO PRN (00:35)
[2020-12-18] MEDS ORDERED: potassium Cl 40MEQ/1/2NS 520ml 520 ML IV PRN ×2 (00:35)
[2020-12-18] MEDS ORDERED: dextrose ORAL solution 15 GM/59 ML bottle PO PRN ×4 (00:40→19:45)
[2020-12-18] MEDS ORDERED: MESSAGE TO PHARMACY PO ONE ×2 (00:40→19:45)
[2020-12-18] MEDS ORDERED: glucagon, human recombinant 1mg kit SUBCUT PRN ×2 (00:40→19:45)
[2020-12-18] MEDS ORDERED: dextrose 50%-water 50ml dispensing syringe IV PRN ×4 (00:40→19:45)
[2020-12-18] MEDS ORDERED: pantoprazole 40 MG vial IV ONE (00:50)
[2020-12-18] MEDS: normal saline 1000ml 1,000 ML IV SCH ×3 (01:12→20:35)
[2020-12-18 02:00] LABS: HEMOGLOBIN A1C 10.4 % (4.5-6.2)
[2020-12-18] MEDS: LORazepam 2 mg/ml vial IV PRN ×6 (05:16→21:41)
--- NOTE | 2020-12-18 05:25 | NUR ---
PT STARTED TO BECOME AGITATED AND REQUESTED ATIVAN. MEDICATED PT PER PRN ORDERS.
--- NOTE | 2020-12-18 06:00 | NUR ---
PT RESTING COMFORTABLY. EQUAL RISE AND FALL OF CHEST
--- NOTE | 2020-12-18 06:30 | NUR ---
PATIENT 5150, NO SITTER AVAILABLE, DOLL WIGS HACKLER AWARE
[2020-12-18] MEDS: K and/or MAG REPLACEMENT MC SCH ×2 (08:00→18:22)
[2020-12-18] MEDS: multivitamins, therapeutics tablet PO SCH (09:40)
[2020-12-18] MEDS: heparin, porcine 5000 units/ml vial SQ SCH ×2 (09:41→20:32)
[2020-12-18] MEDS: docusate sod 100mg capsule PO SCH ×2 (09:42→20:00)
[2020-12-18] MEDS ORDERED: MAGN400T56 PO (10:09)
[2020-12-18] MEDS ORDERED: FOLI0.4T14 PO (10:09)
[2020-12-18] MEDS ORDERED: THIA50TA10 PO (10:12)
[2020-12-18] MEDS ORDERED: LOP25T PO (10:12)
[2020-12-18 10:43] LABS: ALANINE AMINOTRANSFERASE 112 U/L (12-78); ALBUMIN 3.3 G/DL (3.4-5.0); ALBUMIN/GLOBULIN RATIO 0.9 (1.1-1.5); ALKALINE PHOSPHATASE 104 IU/L (46-116); ANION GAP 8 (8-16); ASPARTATE AMINO TRANSFERASE 63 U/L (10-37); BILIRUBIN,TOTAL 0.6 MG/DL (0.1-1.0); BLOOD UREA NITROGEN 8 MG/DL (7-18); BUN/CREATININE RATIO 9.3 (5.4-32.0); CALCIUM 7.9 MG/DL (8.5-10.1); CHLORIDE 106 MMOL/L (99-107); CREATININE 0.86 MG/DL (0.60-1.10); GLUCOSE 200 MG/DL (70-104); POTASSIUM 3.6 MMOL/L (3.5-5.1); SODIUM 140 MMOL/L (135-145); TOTAL CARBON DIOXIDE 25.9 MMOL/L (24-32); eGFR > 90 ML/MIN
[2020-12-18 12:00] VITALS: BP 130/87
[2020-12-18] MEDS ORDERED: pneumococcal 23-VAL P-sac vacc 25 mcg/0.5ml vial IMVAC ONE (12:00)
--- NOTE | 2020-12-18 13:32 | NUR ---
Met with patient in regards to alcohol use to see if patient wanted any help with treatment. Patient has a plan to move in with mom and she has made appointments to get him into rehab and set up with a counselor. I told patient that I would come see him again before he is discharged to make sure that his plan is still in place.
[2020-12-18] MEDS: ondansetron/PF 4mg/2ml inj IV PRN (13:43)
--- NOTE | 2020-12-18 14:59 | NUR ---
DM/malnutrition consults: Pt BIB the police on a 5150 mental health hold for evaluation of SI per ED report. Also admit for alcoholic intoxication and DKA with T2DM, current A1c is 10.4%. Pt would benefit from DM education though not appropriate at this time given 5150. Of note, new order in EMR states pt will get insulin on discharge. Pt reports wt loss with decreased appetite per malnutrition risk screen with RN. Current documented wt isn't scaled though is stable with scaled wt hx in EMR. Pt on a CHO controlled diet, pending documentation of PO intake. Pt with no documented decrease in muscle strength or edema. Pt appears well developed well nourished per ED report. Pt currently lacks a minimum of two criteria for malnutrition. Noted pt receiving routine Thiamine, Folic acid, and MVI for EtOH hx. LBM 12/18. Will continue to follow and monitor need for nutrition intervention pending trends in PO intake. Recommendations: 1) Continue CHO controlled diet 2) Continue routine Thiamine, Folic acid, and MVI for EtOH hx 3) Routine bowel care 4) Scaled weight this admit; weekly scaled weights thereafter 5) DM education once appropriate; A1c 10.4% Addendum: 12/18/20 at [address] Amended: Links added.
[2020-12-18] MEDS: thiamine 100mg tablet PO SCH (16:16)
[2020-12-18 18:00] VITALS: BP 131/94
--- NOTE | 2020-12-18 18:40 | NUR ---
Took report from Traveler GRACE PRADO. Pt has 3 consecutive high blood sugars, went to check pt immediately upon shift change. Pt states he is not a threat to himself or others currently. pt is a little shaky, and felt like he needed ativan. Checked pt blood sugar 9 Addendum: 12/18/20 at 1843 by Louie Arciniega RN Blood sugar 260, administered 2mg Ativab PRN.
[2020-12-18] MEDS ORDERED: insulin Lispro (HumaLOG) vial - multi-dose SQ SCH (19:45)
[2020-12-18] MEDS: morphine 2 MG/ML inj. syringe IV PRN (20:23)
[2020-12-18] MEDS: metoprolol tartrate 12.5mg (1/2 tablet) PO SCH (20:30)
[2020-12-18] MEDS: gabapentin 100mg capsule PO SCH (20:30)
[2020-12-18] MEDS: magnesium oxide 400mg tablet PO SCH (20:34)
[2020-12-18] MEDS: insulin Lispro (HumaLOG) vial - multi-dose SQ SCH ×2 (20:40→21:53)
[2020-12-18] MEDS ORDERED: insulin glargine (Lantus) pen - multi-dose SQ SCH (21:00)
[2020-12-18] MEDS: temazepam 15mg capsule PO PRN (23:19)
[2020-12-19] VITALS: BP 131/76
[2020-12-19] MEDS: LORazepam 2 mg/ml vial IV PRN ×2 (00:44→07:20)
[2020-12-19] MEDS: morphine 2 MG/ML inj. syringe IV PRN ×2 (02:42→07:17)
[2020-12-19] MEDS: temazepam 15mg capsule PO PRN (02:45)
--- NOTE | 2020-12-19 06:08 | NUR ---
Problems reprioritized. Patient report given, questions answered & plan of care reviewed with Triny EDWARDS.
--- NOTE | 2020-12-19 06:08 | NUR ---
Patient in room [facility]. I have received report from Louie EDWARDS and had the opportunity to ask questions and assume patient care.
[2020-12-19] MEDS: heparin, porcine 5000 units/ml vial SQ SCH (07:19)
[2020-12-19] MEDS: ondansetron/PF 4mg/2ml inj IV PRN (07:19)
[2020-12-19] MEDS: multivitamins, therapeutics tablet PO SCH (07:20)
[2020-12-19] MEDS: magnesium oxide 400mg tablet PO SCH (07:20)
[2020-12-19] MEDS: docusate sod 100mg capsule PO SCH (07:20)
[2020-12-19] MEDS: thiamine 100mg tablet PO SCH (07:20)
[2020-12-19] MEDS: gabapentin 100mg capsule PO SCH (07:20)
[2020-12-19 07:23] VITALS: BP_SYST 120
[2020-12-19] MEDS: metoprolol tartrate 12.5mg (1/2 tablet) PO SCH (07:23)
[2020-12-19] MEDS ORDERED: folic acid 0.4mg tablet PO SCH (08:00)
[2020-12-19] MEDS: insulin Lispro (HumaLOG) vial - multi-dose SQ SCH (09:08)
[2020-12-19 09:46] LABS: EOSINOPHILS # (AUTO) 0.3 X10'3 (0-0.9); HEMOGLOBIN 9.8 g/dl (14.0-17.9); MEAN CORPUSCULAR HEMOGLOBIN 22.5 PG (27.0-31.0); MEAN PLATELET VOLUME 8.4 FL (7.4-10.4); MONOCYTES # (AUTO) 0.3 X10'3 (0-0.9)
[2020-12-19 09:49] LABS: BASOPHILS # (AUTO) 0.1 X10'3 (0-0.2); BASOPHILS % (AUTO) 1.5 % (0-1); EOSINOPHILS % (AUTO) 4.4 % (0-6); LYMPHOCYTES # (AUTO) 1.3 X10'3 (1.1-4.8); MEAN CORPUSCULAR HGB CONC 31.7 g/dL (33.0-36.5); MEAN CORPUSCULAR VOLUME 70.9 FL (78-98); MONOCYTES % (AUTO) 4.7 % (2-12); NEUTROPHILS % (AUTO) 71.4 % (42-75); PLATELET COUNT 339 X10'3 (140-440); RED BLOOD COUNT 4.37 X10'6 (4.70-6.10); RED CELL DISTRIBUTION WIDTH 25.6 % (11.5-14.5)
[2020-12-19 10:01] LABS: ALANINE AMINOTRANSFERASE 95 U/L (12-78); ALBUMIN 3.1 G/DL (3.4-5.0); ALBUMIN/GLOBULIN RATIO 0.8 (1.1-1.5); ALKALINE PHOSPHATASE 113 IU/L (46-116); ANION GAP 7 (8-16); ASPARTATE AMINO TRANSFERASE 66 U/L (10-37); BILIRUBIN,TOTAL 0.7 MG/DL (0.1-1.0); BLOOD UREA NITROGEN 7 MG/DL (7-18); BUN/CREATININE RATIO 8.8 (5.4-32.0); CALCIUM 7.9 MG/DL (8.5-10.1); CHLORIDE 101 MMOL/L (99-107); GLUCOSE 225 MG/DL (70-104); POTASSIUM 3.4 MMOL/L (3.5-5.1); SODIUM 133 MMOL/L (135-145); TOTAL CARBON DIOXIDE 25.5 MMOL/L (24-32); TOTAL PROTEIN 6.9 G/DL (6.4-8.2); eGFR > 90 ML/MIN
[2020-12-19 10:14] LABS: ANISOCYTOSIS 3+; MICROCYTOSIS 1+; PLATELET ESTIMATE NORMAL; POIKILOCYTOSIS FEW
[2020-12-19] MEDS ORDERED: LANTUS SQ (11:15)
--- NOTE | 2020-12-19 13:37 | NUR ---
12:20pm: Patient was educated on diabetes management, insulin use, sign and symptoms of hypo/hyperglycemia. Patient was also educated on how to use insulin pen. patient was given opportunity to ask question, patient verbalized understanding of instruction given. Patient was given Pneumovax shot, well tolerated by patient. 1330: patient discharge in comfortable condition, IV taken out, all personal item given to patient. discharge instruction provided, patient verbalized understanding of instruction given, cab provided by the hospital, patient transported to cab with a wheel chair at 1330
[2020-12-20] MEDS ORDERED: LORazepam 2 mg/ml vial IV PRN (00:40)
[2020-12-20] MEDS ORDERED: LORazepam 1 MG tablet PO PRN (00:40)
[2020-12-22] MEDS ORDERED: LORazepam 1 MG tablet PO PRN (00:40)
== END 2020-12-19 14:06 | disposition home health service (06) | DRG 392 ==
LOC: ER 18:12 → ED HOLD 12-18 00:36 → SUR 3N 12-18 07:57
PROVIDERS: ADMIT Internal Medicine; ATTEND Internal Medicine
DX: K52.9 Noninfective gastroenteritis and colitis, unspecified (principal); F10.239 Alcohol dependence with withdrawal, unspecified; R45.851 Suicidal ideations; F10.229 Alcohol dependence with intoxication, unspecified; F32.A Depression, unspecified; I11.0 Hypertensive heart disease with heart failure; I50.9 Heart failure, unspecified; F12.90 Cannabis use, unspecified, uncomplicated; Z60.2 Problems related to living alone; F41.9 Anxiety disorder, unspecified; Z20.822 Contact with and (suspected) exposure to COVID-19; K86.89 Other specified diseases of pancreas; Z79.4 Long term (current) use of insulin; Z79.84 Long term (current) use of oral hypoglycemic drugs; Z83.3 Family history of diabetes mellitus; Z87.11 Personal history of peptic ulcer disease; Z90.49 Acquired absence of other specified parts of digestive tract; Z79.899 Other long term (current) drug therapy
CPT/HCPCS: 36415; 74176; 80053; 80305; 80320; 81001; 82948; 83036; 83605; 83690; 84443; 85007; 85008; 85025; 87635; 90732; 96372; 99285; C9113; C9803; G0378; J1644; J1815; J2060; J2270; J2405; J3411; J3490; J7030

== ENCOUNTER 2020-12-28 21:14 | Inpatient (IN) | payer MEDICARE, MEDICAID ==
[~2020-12-28] VITALS: Ht 180.3 cm; Wt 102.3 kg
[~2020-12-28 21:14] MED LIST changes: -BUSP10TA11 PO; -CALC500P30 PO; +FOLI0.4T14 PO; -FOLI1TAB16 PO; -GABA-530 PO; +LANTUS SQ; +MAGN400T56 PO; -MAGN500C16 PO; -THI100T PO; +THIA50TA10 PO
[2020-12-28 22:06] LABS: BASOPHILS # (AUTO) 0.2 X10'3 (0-0.2); HEMOGLOBIN 11.9 g/dl (14.0-17.9); NEUTROPHILS # (AUTO) 3.5 X10'3 (1.8-7.7); NEUTROPHILS % (AUTO) 47.4 % (42-75)
[2020-12-28 22:08] LABS: BASOPHILS % (AUTO) 3.1 % (0-1); EOSINOPHILS # (AUTO) 0.2 X10'3 (0-0.9); HEMATOCRIT 38.1 % (42.0-52.0); LYMPHOCYTES # (AUTO) 2.7 X10'3 (1.1-4.8); LYMPHOCYTES % (AUTO) 37.1 % (21-51); MEAN CORPUSCULAR HGB CONC 31.3 g/dL (33.0-36.5); MEAN CORPUSCULAR VOLUME 70.5 FL (78-98); MONOCYTES # (AUTO) 0.8 X10'3 (0-0.9); MONOCYTES % (AUTO) 10.4 % (2-12); PLATELET COUNT 583 X10'3 (140-440); RED BLOOD COUNT 5.41 X10'6 (4.70-6.10); RED CELL DISTRIBUTION WIDTH 25.2 % (11.5-14.5); WHITE BLOOD COUNT 7.3 X10'3 (4.5-11.0)
[2020-12-28 22:20] LABS: ALANINE AMINOTRANSFERASE 125 U/L (12-78); ALBUMIN/GLOBULIN RATIO 0.8 (1.1-1.5); ALKALINE PHOSPHATASE 114 IU/L (46-116); ANION GAP 20 (8-16); ASPARTATE AMINO TRANSFERASE 86 U/L (10-37); BILIRUBIN,TOTAL 0.4 MG/DL (0.1-1.0); BLOOD UREA NITROGEN 8 MG/DL (7-18); BUN/CREATININE RATIO 8.3 (5.4-32.0); CALCIUM 8.8 MG/DL (8.5-10.1); CHLORIDE 98 MMOL/L (99-107); CREATININE 0.96 MG/DL (0.60-1.10); GLUCOSE 383 MG/DL (70-104); POTASSIUM 3.9 MMOL/L (3.5-5.1); SODIUM 136 MMOL/L (135-145); TOTAL PROTEIN 9.1 G/DL (6.4-8.2); eGFR 83 ML/MIN
[2020-12-28] MEDS ORDERED: ondansetron/PF 4mg/2ml inj IV ONE (22:20)
[2020-12-28] MEDS ORDERED: normal saline 1000ml 1,000 ML IV ONE ×2 (22:20→23:15)
--- NOTE | 2020-12-28 22:20 | NUR ---
Pt is tearful. +Nausea. +Emesis is white mucus.
[2020-12-28 22:22] LABS: ETHANOL 0.295 GM/DL (0.0-0.010); LIPASE < 50 U/L (73-393)
--- NOTE | 2020-12-28 22:25 | NUR ---
Pt was placed on 5150 hold by Jose Luis BARRERA due to making suicidal statement to his mother. Pt does not have a plan to harm himself. Agreed to not harm himself while here in the hospital.
[2020-12-28 22:39] LABS: URINE AMPHETAMINE SCREEN NEGATIVE (Neg); URINE BARBITUATE SCREEN NEGATIVE (Neg); URINE BENZODIAZEPINES SCREEN POSITIVE (Neg); URINE CANNABINOID SCREEN POSITIVE (Neg); URINE COCAINE SCREEN NEGATIVE (Neg); URINE METHADONE SCREEN NEGATIVE (Neg); URINE OPIATE SCREEN NEGATIVE (Neg); URINE PHENCYCLIDINE SCREEN NEGATIVE (Neg)
[2020-12-28 22:50] LABS: CLARITY,URINE CLEAR (Clear); COLOR,URINE YELLOW (Yellow); GLUCOSE, URINE >=1000 mg/dl (Neg); PROTEIN,URINE TRACE mg/dl (Neg); UA COLLECTION TYPE NON-SPECIFIED
[2020-12-28 22:51] LABS: KETONES,URINE 40 mg/dl (Neg); LEUKOCYTE ESTERASE ,URINE NEGATIVE (Neg); NITRITES, URINE NEGATIVE (Neg); OCCULT BLOOD,URINE NEGATIVE (Neg); UROBILINOGEN,URINE 0.2 E.U/dL (0.2-1.0)
[2020-12-28 22:54] LABS: MUCUS STRANDS FEW /LPF (Neg); SQUAMOUS EPITHELIAL CELL,UR FEW /LPF (FEW)
[2020-12-28 22:55] LABS: BACTERIA,URINE NONE SEEN /HPF (Neg); CELLULAR CAST 0-4 /LPF (NEGATIVE); RBC,URINE 0-2 /HPF (0-2); WBC,URINE 0-4 /HPF (0-4)
[2020-12-28 23:04] LABS: PLATELET ESTIMATE INCREASED; TOTAL CELLS COUNTED 100
[2020-12-28 23:05] LABS: ANISOCYTOSIS 3+; MICROCYTOSIS 1+
[2020-12-28] MEDS ORDERED: dextrose 50%-water 50ml dispensing syringe IV PRN (23:15)
[2020-12-28] MEDS ORDERED: insulin Lispro (HumaLOG) vial - multi-dose SQ SCH (23:15)
[2020-12-28] MEDS ORDERED: Insulin Reg/NS 100units/100mL 100 ML IV SCH ×2 (23:15→23:45)
[2020-12-28 23:48] LABS: CREATINE KINASE 49 U/L (39-308); TROPONIN I < 0.04 NG/ML (0.0-0.05)
[2020-12-28] MEDS: normal saline 1000ml 1,000 ML IV SCH (23:52)
[2020-12-29] MEDS ORDERED: insulin regular, human U-100 3ml vial - multi-dose IV PRN
[2020-12-29 00:12] LABS: ABG BASE EXCESS -6.3 mmol/L (-2.0-2.0); ABG HCO3 16.1 mmol/L (22.0-26.0); ABG OXYGEN SATURATION 97.1 % (94-97); ABG PCO2 (T) 23.6 mmHg (35.0-48.0); ABG PO2 (T) 98.9 mmHg (75.0-100.0); ALLEN'S TEST POSITIVE; FCOHb 0.6 % (0.0-3.9); FMetHb 0.2 % (0.0-1.5); FO2Hb 96.3 % (94-97); TOTAL HEMOGLOBIN 11.6 G/dl (14.0-18.0)
[2020-12-29] MEDS ORDERED: diphenhydrAMINE 25mg capsule PO PRN (00:15)
[2020-12-29] MEDS ORDERED: acetaminophen 325mg tablet PO PRN ×2 (00:15)
[2020-12-29] MEDS ORDERED: acetaminophen 650mg rectal suppository RC PRN (00:15)
[2020-12-29] MEDS: normal saline 1000ml 1,000 ML IV SCH ×5 (00:15→19:28)
[2020-12-29] MEDS ORDERED: dextrose 50%-water 50ml dispensing syringe IV PRN ×3 (00:15→00:20)
[2020-12-29] MEDS ORDERED: diphenhydrAMINE 50 mg/ml inj IV PRN (00:15)
[2020-12-29] MEDS ORDERED: bisacodyl 10mg suppository rectal RC PRN (00:15)
[2020-12-29] MEDS ORDERED: morphine 2 MG/ML inj. syringe IV PRN (00:15)
[2020-12-29] MEDS ORDERED: magnesium hydroxide 30ml (MOM) UD suspension PO PRN (00:15)
[2020-12-29] MEDS ORDERED: HYDROcodone/acetaminophen 5mg/325mg tablet PO PRN (00:15)
[2020-12-29] MEDS ORDERED: haloperidol 5mg tablet PO PRN (00:15)
[2020-12-29] MEDS ORDERED: haloperidol lactate 5mg/ml inj IM PRN (00:15)
[2020-12-29] MEDS ORDERED: MESSAGE TO PHARMACY PO ONE (00:20)
[2020-12-29] MEDS ORDERED: glucagon, human recombinant 1mg kit SUBCUT PRN (00:20)
[2020-12-29] MEDS ORDERED: dextrose ORAL solution 15 GM/59 ML bottle PO PRN ×2 (00:20)
[2020-12-29] MEDS: mag hydrox/Alum hydrox/simeth 30ml oral suspension PO PRN (00:37)
[2020-12-29 01:04] LABS: PARTIAL THROMBOPLASTIN TIME 23 SECONDS (22-32)
[2020-12-29 01:18] LABS: MAGNESIUM 1.5 MG/DL (1.5-2.4); PHOSPHORUS 3.1 MG/DL (2.3-4.5)
--- NOTE | 2020-12-29 01:26 | NUR ---
Dr. Montes in to see patient, he is resting on [facility].
[2020-12-29] MEDS: dextrose 5%-1/2 normal saline 1,000 ML IV SCH ×2 (02:05→06:12)
[2020-12-29] MEDS: LORazepam 2 mg/ml vial IV PRN ×5 (02:07→18:53)
--- NOTE | 2020-12-29 02:12 | NUR ---
Patient anxious and restless, I gave Ativan 2mg.
--- NOTE | 2020-12-29 06:08 | NUR ---
Dr. Montes notified patient's BG is 92 with insulin drip@ 5 and D5 1/2NS @250. Per MD lower Insulin drip to 2 and order CMP. Advance diet to CC, check labs prior to patient eating.
[2020-12-29 06:49] LABS: EOSINOPHILS # (AUTO) 0.2 X10'3 (0-0.9); HEMOGLOBIN 10.1 g/dl (14.0-17.9); LYMPHOCYTES # (AUTO) 2.9 X10'3 (1.1-4.8); MEAN CORPUSCULAR HEMOGLOBIN 22.4 PG (27.0-31.0)
[2020-12-29 06:51] LABS: BASOPHILS # (AUTO) 0.1 X10'3 (0-0.2); BASOPHILS % (AUTO) 1.3 % (0-1); EOSINOPHILS % (AUTO) 2.8 % (0-6); HEMATOCRIT 31.3 % (42.0-52.0); LYMPHOCYTES % (AUTO) 38.1 % (21-51); MEAN CORPUSCULAR HGB CONC 32.2 g/dL (33.0-36.5); MEAN CORPUSCULAR VOLUME 69.3 FL (78-98); MEAN PLATELET VOLUME 7.7 FL (7.4-10.4); MONOCYTES % (AUTO) 12.9 % (2-12); NEUTROPHILS # (AUTO) 3.4 X10'3 (1.8-7.7); NEUTROPHILS % (AUTO) 44.9 % (42-75); PLATELET COUNT 409 X10'3 (140-440); RED BLOOD COUNT 4.51 X10'6 (4.70-6.10); RED CELL DISTRIBUTION WIDTH 25.2 % (11.5-14.5); WHITE BLOOD COUNT 7.7 X10'3 (4.5-11.0)
[2020-12-29 07:17] LABS: ALANINE AMINOTRANSFERASE 98 U/L (12-78); ALBUMIN 3.4 G/DL (3.4-5.0); ALBUMIN/GLOBULIN RATIO 0.9 (1.1-1.5); ALKALINE PHOSPHATASE 92 IU/L (46-116); ANION GAP 14 (8-16); ASPARTATE AMINO TRANSFERASE 51 U/L (10-37); BILIRUBIN,TOTAL 0.5 MG/DL (0.1-1.0); BLOOD UREA NITROGEN 8 MG/DL (7-18); BUN/CREATININE RATIO 11.6 (5.4-32.0); CALCIUM 7.7 MG/DL (8.5-10.1); CHLORIDE 104 MMOL/L (99-107); CREATININE 0.69 MG/DL (0.60-1.10); GLUCOSE 97 MG/DL (70-104); POTASSIUM 3.3 MMOL/L (3.5-5.1); SODIUM 142 MMOL/L (135-145); TOTAL CARBON DIOXIDE 24.4 MMOL/L (24-32); TOTAL PROTEIN 7.3 G/DL (6.4-8.2); eGFR > 90 ML/MIN
[2020-12-29] MEDS: docusate sod 100mg capsule PO SCH ×2 (08:00→19:28)
[2020-12-29] MEDS: morphine 2 MG/ML inj. syringe IV PRN ×3 (09:27→21:11)
[2020-12-29] MEDS: ondansetron/PF 4mg/2ml inj IV PRN ×2 (09:27→17:10)
[2020-12-29] MEDS: pantoprazole 40mg Tablet.DR PO SCH (09:28)
[2020-12-29] MEDS: heparin, porcine 5000 units/ml vial SQ SCH ×3 (09:28→23:09)
--- NOTE | 2020-12-29 10:22 | NUR ---
Note pio in EDM - 12/29/20 at 1024 by ELIZA BETO Roper to administer Keppra, pharmacy called and med should be ready to parts picker in approx 15 min.
[2020-12-29] MEDS ORDERED: PANT-47 PO (12:33)
[2020-12-29] MEDS ORDERED: MAGN400T29 PO (12:33)
[2020-12-29] MEDS ORDERED: GABA300C PO (12:33)
[2020-12-29] MEDS ORDERED: FERR-106 PO (12:33)
[2020-12-29] MEDS ORDERED: FOLI0.4T6 PO (12:33)
[2020-12-29] MEDS ORDERED: SERT100T PO (12:33)
[2020-12-29] MEDS ORDERED: ATOR10TA70 PO (12:33)
[2020-12-29] MEDS ORDERED: MULT-1085 PO (12:33)
[2020-12-29] MEDS: gabapentin 300mg capsule PO SCH ×2 (13:23→20:07)
[2020-12-29] MEDS: insulin Lispro (HumaLOG) vial - multi-dose SQ SCH (15:50)
--- NOTE | 2020-12-29 17:00 | NUR ---
Patient in room ED 3. I have received report from GRACE Pinto and had the opportunity to ask questions and awaiting pt's arrival from ED.
--- NOTE | 2020-12-29 17:41 | NUR ---
Pt arrived from ED, ambulated with standby assist to bed. Alert and Oriented x4. BLL, SRx2, CL within reach, non skid socks on. Vitals complete. NS running per md orders at 100ml/hr.
[2020-12-29 18:00] VITALS: BP 140/99
[2020-12-29 18:03] VITALS: BP 147/106
--- NOTE | 2020-12-29 18:05 | NUR ---
Patient in room PCU 3023. I have received report from Gisel Bryson RN and had the opportunity to ask questions and assume patient care.Patient is laying in bed, no signs of distress. VSS. Bed locked and lowered, call light within reach. Will continue to monitor.
--- NOTE | 2020-12-29 18:25 | NUR ---
Problems reprioritized. Patient report given, questions answered & plan of care reviewed with Cheyenne RN. Pt laying in bed resting comfortably at change of shift. No signs of distress noted at this time.
[2020-12-29] MEDS ORDERED: magnesium 2GM in 50ml NS 50 ML IV PRN (19:55)
[2020-12-29] MEDS ORDERED: potassium Cl 40MEQ/1/2NS 520ml 520 ML IV PRN (19:55)
[2020-12-29] MEDS ORDERED: magnesium 4gm in 100ml NS 100 ML IV PRN (19:55)
[2020-12-29] MEDS ORDERED: potassium Cl 20 mEq SR tablet PO PRN (19:55)
[2020-12-29] MEDS: insulin glargine (Lantus) pen - multi-dose SQ SCH (20:18)
[2020-12-29] MEDS: potassium Cl 20 mEq SR tablet PO PRN (20:52)
[2020-12-29] MEDS: K and/or MAG REPLACEMENT MC SCH (20:56)
[2020-12-29] MEDS ORDERED: temazepam 15mg capsule PO PRN (21:00)
[2020-12-29 21:52] LABS: MAGNESIUM 1.1 MG/DL (1.5-2.4); POTASSIUM 3.2 MMOL/L (3.5-5.1)
[2020-12-29 22:00] VITALS: BP 134/94
[2020-12-29] MEDS: magnesium Cl slow-release 64mg tablet PO PRN (22:20)
[2020-12-29] MEDS: HYDROcodone/acetaminophen 10/325mg tab PO PRN (22:25)
[2020-12-30] MEDS: potassium Cl 20 mEq SR tablet PO PRN ×2 (01:24→05:04)
[2020-12-30] MEDS: morphine 2 MG/ML inj. syringe IV PRN (01:50)
[2020-12-30 02:00] VITALS: BP 133/90
[2020-12-30] MEDS: LORazepam 2 mg/ml vial IV PRN ×3 (03:51→21:21)
[2020-12-30] MEDS: normal saline 1000ml 1,000 ML IV SCH ×2 (05:16→17:08)
[2020-12-30] MEDS: HYDROcodone/acetaminophen 10/325mg tab PO PRN ×3 (05:50→19:31)
[2020-12-30 06:18] LABS: BASOPHILS # (AUTO) 0.1 X10'3 (0-0.2); BASOPHILS % (AUTO) 1.5 % (0-1); EOSINOPHILS # (AUTO) 0.2 X10'3 (0-0.9); EOSINOPHILS % (AUTO) 4.2 % (0-6); HEMATOCRIT 30.2 % (42.0-52.0); HEMOGLOBIN 9.6 g/dl (14.0-17.9); LYMPHOCYTES # (AUTO) 1.4 X10'3 (1.1-4.8); LYMPHOCYTES % (AUTO) 26.9 % (21-51); MEAN CORPUSCULAR HEMOGLOBIN 22.4 PG (27.0-31.0); MEAN CORPUSCULAR HGB CONC 31.7 g/dL (33.0-36.5); MEAN CORPUSCULAR VOLUME 70.6 FL (78-98); MEAN PLATELET VOLUME 8.3 FL (7.4-10.4); MONOCYTES # (AUTO) 0.3 X10'3 (0-0.9); MONOCYTES % (AUTO) 6.4 % (2-12); NEUTROPHILS # (AUTO) 3.1 X10'3 (1.8-7.7); PLATELET COUNT 290 X10'3 (140-440); RED BLOOD COUNT 4.28 X10'6 (4.70-6.10); RED CELL DISTRIBUTION WIDTH 25.5 % (11.5-14.5); WHITE BLOOD COUNT 5.1 X10'3 (4.5-11.0)
[2020-12-30 06:32] LABS: ANION GAP 10 (8-16); BLOOD UREA NITROGEN 8 MG/DL (7-18); BUN/CREATININE RATIO 11.6 (5.4-32.0); CALCIUM 7.9 MG/DL (8.5-10.1); CHLORIDE 103 MMOL/L (99-107); CHOL/HDL RATIO 6.2 (0.00-4.99); CHOLESTEROL 191 MG/DL (0-200); CREATININE 0.69 MG/DL (0.60-1.10); GLUCOSE 185 MG/DL (70-104); HDL CHOLESTEROL 31 MG/DL (35-60); LDL CHOLESTEROL 137 MG/DL (50-100); MAGNESIUM 1.2 MG/DL (1.5-2.4); POTASSIUM 3.8 MMOL/L (3.5-5.1); SODIUM 137 MMOL/L (135-145); TOTAL CARBON DIOXIDE 23.7 MMOL/L (24-32); TRIGLYCERIDES 150 MG/DL (20-135); eGFR > 90 ML/MIN
[2020-12-30 07:00] VITALS: BP 126/96
--- NOTE | 2020-12-30 07:25 | NUR ---
Patient in room PCU 3023. I have received report from Ni and had the opportunity to ask questions and assume patient care. Pt supine in bed, alert to voice, denies headache, nausea, or visual disturbance. scant shakiness to hands, Pt endorses constant right abd pain "over my liver and pancreas." pt noted to self position. Sitter at bedside. no s/sx acute distress. safety education completed. safety measures in place.
[2020-12-30] MEDS: pantoprazole 40mg Tablet.DR PO SCH ×2 (08:00→09:59)
[2020-12-30] MEDS: K and/or MAG REPLACEMENT MC SCH ×2 (08:00→20:00)
[2020-12-30 09:36] LABS: ANISOCYTOSIS 3+; ELLIPTOCYTES 1+; MICROCYTOSIS 1+; PLATELET ESTIMATE NORMAL
[2020-12-30] MEDS: folic acid 1mg tablet PO SCH (09:57)
[2020-12-30] MEDS: ferrous sulfate 325mg tablet PO SCH (09:58)
[2020-12-30] MEDS: gabapentin 300mg capsule PO SCH ×3 (09:59→21:04)
[2020-12-30] MEDS: multivitamins, therapeutics tablet PO SCH (09:59)
[2020-12-30] MEDS: sertraline 50mg tablet PO SCH (09:59)
[2020-12-30] MEDS: magnesium oxide 400mg tablet PO SCH (09:59)
[2020-12-30] MEDS: docusate sod 100mg capsule PO SCH ×2 (09:59→19:31)
[2020-12-30] MEDS: heparin, porcine 5000 units/ml vial SQ SCH ×2 (10:00→17:06)
[2020-12-30] MEDS: atorvastatin 10mg tablet PO SCH (10:01)
[2020-12-30] MEDS: insulin Lispro (HumaLOG) vial - multi-dose SQ SCH ×2 (10:10→15:36)
[2020-12-30 11:00] VITALS: BP 120/90
[2020-12-30] MEDS: propranolol 10mg tablet PO SCH ×2 (12:30→21:04)
[2020-12-30] MEDS: ondansetron 4mg rapidly disintigrating tab PO PRN (12:30)
[2020-12-30 15:00] VITALS: BP 122/88
[2020-12-30 18:00] VITALS: BP 115/76
--- NOTE | 2020-12-30 18:51 | NUR ---
Problems reprioritized. Patient report given, questions answered & plan of care reviewed with Ni RN. Pt wtihrony s/sx acute distress eating dinner
[2020-12-30] MEDS: magnesium Cl slow-release 64mg tablet PO PRN (21:04)
[2020-12-30] MEDS: insulin glargine (Lantus) pen - multi-dose SQ SCH (21:55)
[2020-12-30 22:00] VITALS: BP 134/89
[2020-12-31] MEDS ORDERED: LORazepam 1 MG tablet PO PRN (00:15)
[2020-12-31] MEDS ORDERED: LORazepam 2 mg/ml vial IV PRN (00:15)
[2020-12-31] MEDS: heparin, porcine 5000 units/ml vial SQ SCH ×3 (00:50→18:05)
[2020-12-31 02:00] VITALS: BP 129/93
[2020-12-31] MEDS: normal saline 1000ml 1,000 ML IV SCH ×2 (02:28→12:15)
[2020-12-31] MEDS: HYDROcodone/acetaminophen 10/325mg tab PO PRN (05:54)
--- NOTE | 2020-12-31 06:56 | NUR ---
Patient in room PCU 3023. I have received report from Ni RN and had the opportunity to ask questions and assume patient care. Pt supine in bed, HOB at 15 degrees, chest rising and falling evenly. sitter at bedside. safety measures in place. no s/sx acute distress
[2020-12-31 07:00] VITALS: BP 146/92
[2020-12-31 07:20] LABS: ANION GAP 15 (8-16); BLOOD UREA NITROGEN 5 MG/DL (7-18); BUN/CREATININE RATIO 6.7 (5.4-32.0); CALCIUM 8.2 MG/DL (8.5-10.1); CHLORIDE 104 MMOL/L (99-107); CREATININE 0.75 MG/DL (0.60-1.10); GLUCOSE 148 MG/DL (70-104); MAGNESIUM 1.5 MG/DL (1.5-2.4); POTASSIUM 4.1 MMOL/L (3.5-5.1); SODIUM 140 MMOL/L (135-145); TOTAL CARBON DIOXIDE 20.7 MMOL/L (24-32); eGFR > 90 ML/MIN
[2020-12-31] MEDS: K and/or MAG REPLACEMENT MC SCH (08:00)
[2020-12-31] MEDS: pantoprazole 40mg Tablet.DR PO SCH ×2 (08:00→08:48)
[2020-12-31 08:13] LABS: BASOPHILS # (AUTO) 0.1 X10'3 (0-0.2); BASOPHILS % (AUTO) 1.2 % (0-1); EOSINOPHILS # (AUTO) 0.3 X10'3 (0-0.9); EOSINOPHILS % (AUTO) 4.9 % (0-6); HEMOGLOBIN 10.6 g/dl (14.0-17.9); LYMPHOCYTES # (AUTO) 1.8 X10'3 (1.1-4.8); LYMPHOCYTES % (AUTO) 26.8 % (21-51); MEAN CORPUSCULAR HEMOGLOBIN 22.3 PG (27.0-31.0); MEAN CORPUSCULAR VOLUME 71.8 FL (78-98); MEAN PLATELET VOLUME 8.3 FL (7.4-10.4); MONOCYTES # (AUTO) 0.4 X10'3 (0-0.9); MONOCYTES % (AUTO) 5.9 % (2-12); NEUTROPHILS # (AUTO) 4.1 X10'3 (1.8-7.7); NEUTROPHILS % (AUTO) 61.2 % (42-75); PLATELET COUNT 265 X10'3 (140-440); RED BLOOD COUNT 4.74 X10'6 (4.70-6.10); RED CELL DISTRIBUTION WIDTH 24.7 % (11.5-14.5); WHITE BLOOD COUNT 6.6 X10'3 (4.5-11.0)
[2020-12-31] MEDS: ferrous sulfate 325mg tablet PO SCH (08:46)
[2020-12-31] MEDS: gabapentin 300mg capsule PO SCH ×2 (08:47→14:43)
[2020-12-31] MEDS: propranolol 10mg tablet PO SCH ×2 (08:47→14:44)
[2020-12-31] MEDS: atorvastatin 10mg tablet PO SCH (08:47)
[2020-12-31] MEDS: folic acid 1mg tablet PO SCH (08:47)
[2020-12-31] MEDS: multivitamins, therapeutics tablet PO SCH (08:47)
[2020-12-31] MEDS: sertraline 50mg tablet PO SCH (08:48)
[2020-12-31] MEDS: ondansetron 4mg rapidly disintigrating tab PO PRN (08:48)
[2020-12-31] MEDS: docusate sod 100mg capsule PO SCH (08:48)
[2020-12-31] MEDS: magnesium oxide 400mg tablet PO SCH (08:49)
--- NOTE | 2020-12-31 10:05 | NUR ---
Pt declined am insulin will check before lunch. pt nauseas.
[2020-12-31] MEDS: mag hydrox/Alum hydrox/simeth 30ml oral suspension PO PRN (10:14)
[2020-12-31 11:00] VITALS: BP 131/93
[2020-12-31] MEDS: insulin Lispro (HumaLOG) vial - multi-dose SQ SCH (14:46)
[2020-12-31 15:00] VITALS: BP 140/99
[2020-12-31] MEDS ORDERED: PANT-47 PO ×2 (17:53)
[2020-12-31] MEDS ORDERED: PROP10TA10 PO ×2 (17:53)
--- NOTE | 2020-12-31 18:15 | NUR ---
pt concerned about lack of diabetic meds on discharge list. Dr. Preston paged.
[2020-12-31] MEDS ORDERED: METF-436 PO ×2 (18:17)
[2020-12-31] MEDS ORDERED: INSU100I25 SQ ×2 (18:17)
--- NOTE | 2020-12-31 18:56 | NUR ---
Problems reprioritized. Patient report given, questions answered & plan of care reviewed with Cheyenne Rn.
--- NOTE | 2020-12-31 19:53 | NUR ---
Patient discharged out of facility to home, in alert and responsive state, denied respiratory and physical distress at time of discharge. Medications and discharge instructions provided. Vital signs on discharge 121/71, 87, 18, 97.5F, 97% on room air. Ambulatory and continent. Taxi provided, and patient escorted to taxi.
[2021-01-02] MEDS ORDERED: LORazepam 1 MG tablet PO PRN (00:15)
[2021-01-02] MEDS ORDERED: LORazepam 2 mg/ml vial IV PRN (00:15)
== END 2020-12-31 19:30 | disposition home or self-care (01) | DRG 638 ==
LOC: ER 21:14 → ED HOLD 12-29 00:13 → UNDOADMIN 12-29 00:13 → ED HOLD 12-29 00:18 → PCU 3S 12-29 17:41 → ED HOLD 12-29 17:41
PROVIDERS: ADMIT Family Medicine; ATTEND Family Medicine
DX: E11.10 Type 2 diabetes mellitus with ketoacidosis without coma (principal); I50.22 Chronic systolic (congestive) heart failure; F10.139 Alcohol abuse with withdrawal, unspecified; K86.1 Other chronic pancreatitis; E86.0 Dehydration; I11.0 Hypertensive heart disease with heart failure; F10.129 Alcohol abuse with intoxication, unspecified; K70.30 Alcoholic cirrhosis of liver without ascites; F12.90 Cannabis use, unspecified, uncomplicated; K29.20 Alcoholic gastritis without bleeding; G89.29 Other chronic pain; F41.9 Anxiety disorder, unspecified; F32.A Depression, unspecified; Y90.8 Blood alcohol level of 240 mg/100 ml or more; Z90.49 Acquired absence of other specified parts of digestive tract; Z83.3 Family history of diabetes mellitus; Z87.11 Personal history of peptic ulcer disease; Z84.1 Family history of disorders of kidney and ureter; Z91.14 Patient's other noncompliance with medication regimen; Z79.899 Other long term (current) drug therapy
CPT/HCPCS: 36415; 36600; 71045; 80048; 80053; 80061; 80305; 80320; 81001; 82550; 82803; 82948; 83690; 83735; 83880; 84100; 84132; 84484; 85007; 85008; 85018; 85025; 85610; 85730; 87081; 96361; 96374; 99291; G0378; J1644; J1815; J2060; J2270; J2405; J7030

== ENCOUNTER 2021-01-12 11:12 | Inpatient (IN) | payer MEDICARE, MEDICAID ==
[~2021-01-12] VITALS: Ht 182.9 cm; Wt 104.5 kg
[~2021-01-12 11:12] MED LIST changes: +ATOR10TA70 PO; +FERR-106 PO; -FOLI0.4T14 PO; +FOLI0.4T6 PO; +GABA300C PO; +INSU100I25 SQ; -LANTUS SQ; -LOP25T PO; +MAGN400T29 PO; -MAGN400T56 PO; +METF-436 PO; +MULT-1085 PO; -OMEP10CA5 PO; +PANT-47 PO; +PROP10TA10 PO; +SERT100T PO; -THIA50TA10 PO
[2021-01-12 12:20] LABS: RED CELL DISTRIBUTION WIDTH 24.8 % (11.5-14.5)
[2021-01-12 12:21] LABS: HEMATOCRIT 39.5 % (42.0-52.0); HEMOGLOBIN 12.4 g/dl (14.0-17.9); MEAN CORPUSCULAR HGB CONC 31.4 g/dL (33.0-36.5); MEAN CORPUSCULAR VOLUME 70.1 FL (78-98); PLATELET COUNT 589 X10'3 (140-440); RED BLOOD COUNT 5.64 X10'6 (4.70-6.10); WHITE BLOOD COUNT 9.9 X10'3 (4.5-11.0)
[2021-01-12] MEDS ORDERED: LORazepam 1 MG tablet PO ONE (12:25)
[2021-01-12] MEDS ORDERED: metoclopramide 10mg tablet PO ONE (12:25)
[2021-01-12 12:41] LABS: ALANINE AMINOTRANSFERASE 123 U/L (12-78); ALBUMIN 4.2 G/DL (3.4-5.0); ALBUMIN/GLOBULIN RATIO 0.8 (1.1-1.5); ALKALINE PHOSPHATASE 152 IU/L (46-116); ANION GAP 29 (8-16); ASPARTATE AMINO TRANSFERASE 144 U/L (10-37); BILIRUBIN,TOTAL 1.1 MG/DL (0.1-1.0); BLOOD UREA NITROGEN 8 MG/DL (7-18); BUN/CREATININE RATIO 7.4 (5.4-32.0); CHLORIDE 87 MMOL/L (99-107); CREATININE 1.08 MG/DL (0.60-1.10); GLUCOSE 373 MG/DL (70-104); LIPASE 69 U/L (73-393); POTASSIUM 3.8 MMOL/L (3.5-5.1); SODIUM 127 MMOL/L (135-145); TOTAL PROTEIN 9.3 G/DL (6.4-8.2); eGFR 72 ML/MIN
[2021-01-12 12:46] LABS: TOTAL CARBON DIOXIDE 11.3 MMOL/L (24-32)
[2021-01-12 13:08] LABS: PLATELET ESTIMATE INCREASED; TOTAL CELLS COUNTED 100
[2021-01-12 13:09] LABS: ANISOCYTOSIS 3+; ELLIPTOCYTES 1+; MICROCYTOSIS 1+
[2021-01-12 13:10] LABS: HYPERSEGMENTED NEUTROPHILS 1+; LARGE PLATELETS FEW
[2021-01-12 13:13] LABS: SCHISTOCYTES FEW
[2021-01-12] MEDS ORDERED: ringers solution, lacted 1,000 ML IV ONE (13:15)
[2021-01-12] MEDS ORDERED: LORazepam 2 mg/ml vial IV ONE ×2 (14:40→16:40)
[2021-01-12] MEDS ORDERED: normal saline 1000ml 1,000 ML IV ONE ×2 (15:00→16:20)
--- NOTE | 2021-01-12 15:33 | NUR ---
[facility] [phone]
--- NOTE | 2021-01-12 16:20 | NUR ---
PA OK WITH IV IN FOOT, DIFFICULT IV ACCESS
[2021-01-12 16:25] LABS: CLARITY,URINE CLEAR (Clear); COLOR,URINE YELLOW (Yellow); UA COLLECTION TYPE VOIDED
[2021-01-12 16:26] LABS: GLUCOSE, URINE >=1000 mg/dl (Neg); KETONES,URINE >=160 mg/dl (Neg); LEUKOCYTE ESTERASE ,URINE NEGATIVE (Neg); NITRITES, URINE NEGATIVE (Neg); OCCULT BLOOD,URINE TRACE-LYSED (Neg); PROTEIN,URINE 300 mg/dl (Neg); UROBILINOGEN,URINE 0.2 E.U/dL (0.2-1.0)
[2021-01-12 16:36] LABS: BACTERIA,URINE NONE SEEN /HPF (Neg); RBC,URINE 0-2 /HPF (0-2); SQUAMOUS EPITHELIAL CELL,UR FEW /LPF (FEW); WBC,URINE 0-4 /HPF (0-4)
[2021-01-12] MEDS ORDERED: pantoprazole 40 MG vial IV ONE (17:15)
[2021-01-12] MEDS ORDERED: CefTRIAXone 2gm/D5W 50ml BAG 50 ML IV ONE (17:20)
[2021-01-12] MEDS ORDERED: thiamine 100mg/ml 2ml inj. IV ONE (18:40)
[2021-01-12] MEDS ORDERED: folic acid 1mg/0.2ml inj IV ONE (18:40)
[2021-01-12] MEDS ORDERED: normal saline 500ml IV soln 500 ML IV ONE (19:25)
[2021-01-12] MEDS ORDERED: ondansetron/PF 4mg/2ml inj IV ONE (20:10)
[2021-01-12] MEDS ORDERED: morphine 4 MG/ML inj SYRINge IV ONE (20:10)
[2021-01-12] MEDS ORDERED: ondansetron/PF 4mg/2ml inj IV PRN (20:35)
[2021-01-12] MEDS ORDERED: MESSAGE TO PHARMACY PO ONE (20:35)
[2021-01-12] MEDS ORDERED: glucagon, human recombinant 1mg kit SUBCUT PRN (20:35)
[2021-01-12] MEDS ORDERED: potassium Cl 40MEQ/1/2NS 520ml 520 ML IV PRN ×2 (20:35)
[2021-01-12] MEDS ORDERED: magnesium 2GM in 50ml NS 50 ML IV PRN (20:35)
[2021-01-12] MEDS ORDERED: HYDROcodone/acetaminophen 5mg/325mg tablet PO PRN (20:35)
[2021-01-12] MEDS ORDERED: dextrose 50%-water 50ml dispensing syringe IV PRN ×3 (20:35)
[2021-01-12] MEDS ORDERED: HYDROcodone/acetaminophen 10/325mg tab PO PRN (20:35)
[2021-01-12] MEDS ORDERED: mag hydrox/Alum hydrox/simeth 30ml oral suspension PO PRN (20:35)
[2021-01-12] MEDS ORDERED: haloperidol lactate 5mg/ml inj IM PRN (20:35)
[2021-01-12] MEDS ORDERED: HYDROmorphone inj. 0.5 MG/0.5 ML DISP.SYRIN IV PRN (20:35)
[2021-01-12] MEDS ORDERED: morphine 2 MG/ML inj. syringe IV PRN ×2 (20:35)
[2021-01-12] MEDS ORDERED: dextrose ORAL solution 15 GM/59 ML bottle PO PRN ×2 (20:35)
[2021-01-12] MEDS ORDERED: haloperidol 5mg tablet PO PRN (20:35)
[2021-01-12] MEDS ORDERED: acetaminophen 325mg tablet PO PRN ×2 (20:35)
[2021-01-12] MEDS: normal saline 1000ml 1,000 ML IV SCH (20:35)
[2021-01-12] MEDS ORDERED: magnesium Cl slow-release 64mg tablet PO PRN (20:35)
[2021-01-12] MEDS ORDERED: insulin Lispro (HumaLOG) vial - multi-dose SQ SCH (20:35)
[2021-01-12] MEDS ORDERED: potassium Cl 20 mEq SR tablet PO PRN ×2 (20:35)
[2021-01-12] MEDS ORDERED: magnesium 4gm in 100ml NS 100 ML IV PRN (20:35)
[2021-01-12] MEDS ORDERED: LORazepam 2 mg/ml vial IV PRN (20:35)
[2021-01-12] MEDS: pantoprazole 40 MG vial IV SCH (20:40)
[2021-01-12] MEDS ORDERED: insulin glargine (Lantus) pen - multi-dose SQ SCH (21:00)
[2021-01-12] MEDS ORDERED: temazepam 15mg capsule PO PRN (21:00)
[2021-01-12 21:02] LABS: ETHANOL 0.216 GM/DL (0.0-0.010); MAGNESIUM 1.6 MG/DL (1.5-2.4)
[2021-01-12 21:07] LABS: URINE AMPHETAMINE SCREEN NEGATIVE (Neg); URINE BARBITUATE SCREEN NEGATIVE (Neg); URINE BENZODIAZEPINES SCREEN NEGATIVE (Neg); URINE CANNABINOID SCREEN NEGATIVE (Neg); URINE COCAINE SCREEN NEGATIVE (Neg); URINE METHADONE SCREEN NEGATIVE (Neg); URINE OPIATE SCREEN NEGATIVE (Neg); URINE PHENCYCLIDINE SCREEN NEGATIVE (Neg)
--- NOTE | 2021-01-12 22:24 | NUR ---
Patient in room ED 13. I have received report from Luis Angel EDWARDS in ER and had the opportunity to ask questions and assume patient care.
[2021-01-12 22:30] VITALS: BP 137/81
[2021-01-12] MEDS: atenolol 25mg tablet PO SCH (22:57)
[2021-01-12] MEDS: LORazepam 1 MG tablet PO PRN (22:57)
[2021-01-13 02:00] VITALS: BP 123/86
[2021-01-13] MEDS: LORazepam 1 MG tablet PO PRN ×3 (03:10→12:15)
[2021-01-13] MEDS: normal saline 1000ml 1,000 ML IV SCH ×2 (03:15→12:15)
--- NOTE | 2021-01-13 06:13 | NUR ---
Problems reprioritized. Patient report given, questions answered & plan of care reviewed with Galina EDWARDS.
--- NOTE | 2021-01-13 06:30 | NUR ---
Patient in room PCU 3013. I have received report from Aishwarya QUEZADA and Angeline Quezada and had the opportunity to ask questions and assume patient care. Pt supine in bed, chest rising and falling evenly. no s/sx acute distress.
[2021-01-13 07:00] VITALS: BP 130/90
[2021-01-13 07:58] LABS: BASOPHILS # (AUTO) 0.1 X10'3 (0-0.2); BASOPHILS % (AUTO) 0.9 % (0-1); EOSINOPHILS # (AUTO) 0.2 X10'3 (0-0.9); EOSINOPHILS % (AUTO) 1.7 % (0-6); HEMATOCRIT 28.4 % (42.0-52.0); LYMPHOCYTES # (AUTO) 1.6 X10'3 (1.1-4.8); LYMPHOCYTES % (AUTO) 14.3 % (21-51); MEAN CORPUSCULAR HEMOGLOBIN 22.3 PG (27.0-31.0); MEAN CORPUSCULAR HGB CONC 31.8 g/dL (33.0-36.5); MEAN PLATELET VOLUME 8.3 FL (7.4-10.4); MONOCYTES # (AUTO) 0.4 X10'3 (0-0.9); MONOCYTES % (AUTO) 3.5 % (2-12); NEUTROPHILS % (AUTO) 79.6 % (42-75); PLATELET COUNT 343 X10'3 (140-440); RED BLOOD COUNT 4.05 X10'6 (4.70-6.10); WHITE BLOOD COUNT 11.2 X10'3 (4.5-11.0)
[2021-01-13] MEDS ORDERED: heparin, porcine 5000 units/ml vial SQ SCH (08:00)
[2021-01-13] MEDS ORDERED: K and/or MAG REPLACEMENT MC SCH (08:00)
[2021-01-13] MEDS: pantoprazole 40 MG vial IV SCH ×2 (08:13→12:14)
[2021-01-13] MEDS: atenolol 25mg tablet PO SCH (08:14)
[2021-01-13 08:27] LABS: ALANINE AMINOTRANSFERASE 72 U/L (12-78); ALBUMIN 3.1 G/DL (3.4-5.0); ALBUMIN/GLOBULIN RATIO 0.8 (1.1-1.5); ALKALINE PHOSPHATASE 108 IU/L (46-116); ANION GAP 18 (8-16); ASPARTATE AMINO TRANSFERASE 66 U/L (10-37); BILIRUBIN,TOTAL 1.2 MG/DL (0.1-1.0); BLOOD UREA NITROGEN 7 MG/DL (7-18); BUN/CREATININE RATIO 8.3 (5.4-32.0); CALCIUM 7.8 MG/DL (8.5-10.1); CHLORIDE 96 MMOL/L (99-107); CHOL/HDL RATIO 5.2 (0.00-4.99); CHOLESTEROL 183 MG/DL (0-200); CREATININE 0.84 MG/DL (0.60-1.10); GLUCOSE 180 MG/DL (70-104); HDL CHOLESTEROL 35 MG/DL (35-60); LDL CHOLESTEROL 115 MG/DL (50-100); MAGNESIUM 1.2 MG/DL (1.5-2.4); POTASSIUM 3.5 MMOL/L (3.5-5.1); SODIUM 132 MMOL/L (135-145); TOTAL CARBON DIOXIDE 17.9 MMOL/L (24-32); TOTAL PROTEIN 6.9 G/DL (6.4-8.2); TRIGLYCERIDES 142 MG/DL (20-135); eGFR > 90 ML/MIN
--- NOTE | 2021-01-13 10:42 | NUR ---
Met with patient in regards to alcohol use. Patient has a plan to go to an inpatient rehab when he moves to his mothers house in [place] on the 18 of January. Patient and I discussed him attending meetings until then to help him until he moves.
[2021-01-13 11:00] VITALS: BP 130/96
[2021-01-13] MEDS ORDERED: oxyCODONE IR 5mg (immed. release) tablet PO PRN (12:35)
[2021-01-13 15:00] VITALS: BP 124/81
[2021-01-13] MEDS ORDERED: NO HOME MEDS (15:22)
--- NOTE | 2021-01-13 15:40 | NUR ---
Pt stated he wanted to leave against medical advice. pt education completed. pt verbalized understanding and desire to leave now against medical advice. Dr. Maldonado notified. PIV discontinued. cannula intact. patient monitor discontinued. AMA form signed and pt walked to the [facility] where he left on foot. pt left without s/sx acute distress
[2021-01-14] MEDS ORDERED: pantoprazole 40mg Tablet.DR PO SCH (07:30)
[2021-01-16] MEDS ORDERED: LORazepam 1 MG tablet PO PRN (20:35)
[2021-01-16] MEDS ORDERED: LORazepam 2 mg/ml vial IV PRN (20:35)
== END 2021-01-13 15:40 | disposition left against medical advice (07) | DRG 392 ==
LOC: ER 11:13 → ED HOLD 20:38 → PCU 3S 22:30
PROVIDERS: ADMIT Internal Medicine; ATTEND Internal Medicine
DX: K29.20 Alcoholic gastritis without bleeding (principal); E87.1 Hypo-osmolality and hyponatremia; E87.2 Acidosis; F10.239 Alcohol dependence with withdrawal, unspecified; E11.65 Type 2 diabetes mellitus with hyperglycemia; E83.42 Hypomagnesemia; F10.229 Alcohol dependence with intoxication, unspecified; I11.0 Hypertensive heart disease with heart failure; F12.90 Cannabis use, unspecified, uncomplicated; F32.A Depression, unspecified; F41.9 Anxiety disorder, unspecified; R00.0 Tachycardia, unspecified; R74.8 Abnormal levels of other serum enzymes; I50.9 Heart failure, unspecified; K74.60 Unspecified cirrhosis of liver; Z53.29 Procedure and treatment not carried out because of patient's decision for other reasons; Z87.11 Personal history of peptic ulcer disease; Z90.49 Acquired absence of other specified parts of digestive tract
CPT/HCPCS: 36415; 80053; 80061; 80305; 80320; 81001; 82948; 83605; 83690; 83735; 84145; 85007; 85025; 87040; 87081; 99285; C9113; G0378; J0696; J1170; J1644; J1815; J2060; J2270; J2405; J3411; J3490; J7030; J7040; J7120